=== PATIENT | male | born 1940 | race Caucasian/White ===

== ENCOUNTER 2017-11-03 12:40 | Inpatient (IN) | payer MEDICARE, OTHER ==
[~2017-11-03] VITALS: Ht 170.2 cm; Wt 69.0 kg
[2017-11-03] MEDS ORDERED: SODIUM CHLORIDE 0.9% 1,000 ML IV ONE (13:18)
[2017-11-03] MEDS ORDERED: SODIUM CHLORIDE 0.9% 1,000ML IVBOLUS ONE (13:30)
[2017-11-03] MEDS ORDERED: SODIUM CHLORIDE FLUSH 10ML SYR IVF ONE (13:30)
[2017-11-03 13:35] LABS: BASOPHILS # (AUTO) 0.03 x10^3/uL (0-0.1); BASOPHILS % (AUTO) 0 % (0-1); EOSINOPHILS # (AUTO) 0.05 x10^3/uL (0-0.4); EOSINOPHILS % (AUTO) 1 % (1-7); LYMPHOCYTES # (AUTO) 1.69 x10^3/uL (1-3.4); LYMPHOCYTES % (AUTO) 20 % (22-44); MD NO; MEAN CORPUSCULAR HEMOGLOBIN 32.8 pg (27.5-34.5); MEAN CORPUSCULAR HGB CONC 33.2 g/dL (33.2-36.2); MEAN CORPUSCULAR VOLUME 98.8 fL (81-97); MEAN PLATELET VOLUME 7.8 fL (7.4-10.4); MONOCYTES # (AUTO) 0.43 x10^3/uL (0.2-0.8); MONOCYTES % (AUTO) 5 % (2-9); NEUTROPHILS # (AUTO) 6.49 x10^3/uL (1.8-6.8); NEUTROPHILS % (AUTO) 75 % (42-75); PLATELET COUNT 202 x10^3/uL (130-400); RED BLOOD COUNT 3.57 x10^6/uL (4.38-5.82); RED CELL DISTRIBUTION WIDTH 13.5 % (9.4-14.8)
[2017-11-03 13:45] LABS: ALANINE AMINOTRANSFERASE 71 U/L (12-78); ALBUMIN 3.5 g/dL (3.4-5.0); ANION GAP 6 mmol/L (5-15); CALCIUM 8.9 mg/dL (8.5-10.1); CHLORIDE 103 mmol/L (98-107); CREATININE 1.05 mg/dL (0.7-1.3)
[2017-11-03 13:46] LABS: INTERNATIONAL NORMALIZED RATIO 1.01 (0.93-1.1); PROTHROMBIN TIME 10.4 Seconds (9.6-11.5)
[2017-11-03 13:48] LABS: ALKALINE PHOSPHATASE 139 U/L (45-117); BILIRUBIN,TOTAL 0.4 mg/dL (0.2-1.0); TOTAL PROTEIN 7.3 g/dL (6.4-8.2)
[2017-11-03] MEDS ORDERED: SODIUM CHLORIDE FLUSH 10ML SYR IVF PRN (16:00)
[2017-11-03 16:20] LABS: MICROSCOPIC NOT IND
[2017-11-03 16:23] LABS: CULTURE INDICATED? NO
[2017-11-03] MEDS ORDERED: ZOLPIDEM 5MG TABLET PO PRN (17:30)
[2017-11-03] MEDS ORDERED: GUAIFENESIN/DM 200-20MG, 10ML UDC PO PRN (17:30)
[2017-11-03] MEDS ORDERED: ONDANSETRON 2MG/ML, 2ML IVPush PRN (17:30)
[2017-11-03] MEDS ORDERED: hydrALAzine 20 MG/ML, 1ML IVPush PRN (17:30)
[2017-11-03] MEDS ORDERED: ENOXAPARIN 40 MG/0.4 ML ONE (18:10)
[2017-11-03] MEDS: ENOXAPARIN 40 MG/0.4 ML SQ SCH (18:12)
[2017-11-03 18:20] LABS: FOLATE LEVEL 13.8 ng/mL (3.1-17.5)
[2017-11-03 18:48] VITALS: BP 156/76
[2017-11-03] MEDS: SODIUM CHLORIDE 0.9% 1,000 ML IV SCH (22:22)
[2017-11-03 22:38] LABS: AMPHETAMINE SCREEN, URINE Negative (Negative); BARBITURATE SCREEN, URINE Negative (Negative); BENZODIAZEPINE SCREEN, URINE Negative (Negative); CANNABINOID SCREEN, URINE Negative (Negative); COCAINE SCREEN, URINE Negative (Negative); METHADONE SCREEN, URINE Negative (Negative); OPIATE SCREEN, URINE Negative (Negative)
[2017-11-04 02:44] VITALS: BP 115/62
[2017-11-04 05:15] LABS: BASOPHILS # (AUTO) 0.04 x10^3/uL (0-0.1); BASOPHILS % (AUTO) 1 % (0-1); EOSINOPHILS # (AUTO) 0.17 x10^3/uL (0-0.4); EOSINOPHILS % (AUTO) 2 % (1-7); LYMPHOCYTES # (AUTO) 2.32 x10^3/uL (1-3.4); LYMPHOCYTES % (AUTO) 30 % (22-44); MD NO; MEAN CORPUSCULAR HGB CONC 33.7 g/dL (33.2-36.2); MEAN CORPUSCULAR VOLUME 98.1 fL (81-97); MEAN PLATELET VOLUME 8.3 fL (7.4-10.4); MONOCYTES # (AUTO) 0.65 x10^3/uL (0.2-0.8); MONOCYTES % (AUTO) 8 % (2-9); NEUTROPHILS # (AUTO) 4.52 x10^3/uL (1.8-6.8); NEUTROPHILS % (AUTO) 59 % (42-75); PLATELET COUNT 209 x10^3/uL (130-400); RED BLOOD COUNT 3.26 x10^6/uL (4.38-5.82); RED CELL DISTRIBUTION WIDTH 13.6 % (9.4-14.8)
[2017-11-04 05:27] LABS: ANION GAP 5 mmol/L (5-15); CALCIUM 8.6 mg/dL (8.5-10.1); CHLORIDE 108 mmol/L (98-107)
[2017-11-04 05:29] LABS: CREATININE 1.15 mg/dL (0.7-1.3)
[2017-11-04 07:35] VITALS: BP 129/73
[2017-11-04] MEDS: SODIUM CHLORIDE 0.9% 1,000 ML IV SCH (11:26)
[2017-11-04 13:00] VITALS: BP 147/80
[2017-11-04] MEDS: ENOXAPARIN 40 MG/0.4 ML SQ SCH (17:30)
[2017-11-04 19:53] VITALS: BP 150/74
[2017-11-05 00:38] VITALS: BP 143/78
[2017-11-05] MEDS: ACETAMINOPHEN 325 MG TABLET PO PRN (02:19)
[2017-11-05 06:00] VITALS: BP 136/75
[2017-11-05 13:45] VITALS: BP 156/81
[2017-11-05] MEDS: metFORMIN 500 MG TABLET PO SCH (17:10)
[2017-11-05 19:04] VITALS: BP 175/131
[2017-11-05] MEDS: VENLAFAXINE 75 MG CAP ER PO SCH (20:51)
[2017-11-05] MEDS: DONEPEZIL 5 MG TABLET PO SCH (20:51)
[2017-11-05] MEDS: ATORVASTATIN 20 MG TABLET PO SCH (20:51)
[2017-11-05] MEDS: TRAZODONE 50MG TABLET PO SCH (20:51)
[2017-11-05 20:52] VITALS: BP 126/85
[2017-11-05] MEDS: ENOXAPARIN 40 MG/0.4 ML SQ SCH (20:56)
[2017-11-06 00:05] VITALS: BP 136/70
[2017-11-06 07:09] VITALS: BP 131/75
[2017-11-06] MEDS: LOSARTAN 50MG TABLET PO SCH (08:15)
[2017-11-06] MEDS: metFORMIN 500 MG TABLET PO SCH ×2 (08:15→17:00)
[2017-11-06 13:35] VITALS: BP 117/68
[2017-11-06] MEDS: ZIPRASIDONE 20 MG INJ IM PRN (13:55)
[2017-11-06] MEDS: TAMSULOSIN 0.4 MG CAP.ER.24H PO SCH (15:30)
[2017-11-06 19:39] VITALS: BP 103/62
[2017-11-06] MEDS: ENOXAPARIN 40 MG/0.4 ML SQ SCH (21:25)
[2017-11-06] MEDS: VENLAFAXINE 75 MG CAP ER PO SCH (21:25)
[2017-11-06] MEDS: ATORVASTATIN 20 MG TABLET PO SCH (21:25)
[2017-11-06] MEDS: TRAZODONE 50MG TABLET PO SCH (21:25)
[2017-11-06] MEDS: DONEPEZIL 5 MG TABLET PO SCH (21:25)
[2017-11-07 08:03] VITALS: BP 119/74
[2017-11-07] MEDS: TAMSULOSIN 0.4 MG CAP.ER.24H PO SCH (10:50)
[2017-11-07] MEDS: metFORMIN 500 MG TABLET PO SCH ×2 (10:50→17:41)
[2017-11-07] MEDS: LOSARTAN 50MG TABLET PO SCH (10:50)
[2017-11-07 14:01] VITALS: BP 145/74
[2017-11-07 19:24] VITALS: BP 144/73
[2017-11-07] MEDS: VENLAFAXINE 75 MG CAP ER PO SCH (20:32)
[2017-11-07] MEDS: ATORVASTATIN 20 MG TABLET PO SCH (20:32)
[2017-11-07] MEDS: TRAZODONE 50MG TABLET PO SCH (20:32)
[2017-11-07] MEDS: ENOXAPARIN 40 MG/0.4 ML SQ SCH (20:33)
[2017-11-07] MEDS: DONEPEZIL 5 MG TABLET PO SCH (20:55)
[2017-11-08 09:07] VITALS: BP 124/74
[2017-11-08] MEDS: TAMSULOSIN 0.4 MG CAP.ER.24H PO SCH (09:15)
[2017-11-08] MEDS: metFORMIN 500 MG TABLET PO SCH ×2 (09:15→16:04)
[2017-11-08] MEDS: LOSARTAN 50MG TABLET PO SCH (09:16)
[2017-11-08 19:13] VITALS: BP 138/76
[2017-11-08] MEDS: ATORVASTATIN 20 MG TABLET PO SCH (20:28)
[2017-11-08] MEDS: ENOXAPARIN 40 MG/0.4 ML SQ SCH (20:28)
[2017-11-08] MEDS: DONEPEZIL 5 MG TABLET PO SCH (20:28)
[2017-11-08] MEDS: TRAZODONE 50MG TABLET PO SCH (20:28)
[2017-11-08] MEDS: VENLAFAXINE 75 MG CAP ER PO SCH (20:28)
[2017-11-09 00:50] VITALS: BP 145/78
[2017-11-09 05:55] LABS: CHLORIDE 107 mmol/L (98-107)
[2017-11-09 05:58] LABS: BASOPHILS # (AUTO) 0.03 x10^3/uL (0-0.1); BASOPHILS % (AUTO) 0 % (0-1); EOSINOPHILS # (AUTO) 0.12 x10^3/uL (0-0.4); EOSINOPHILS % (AUTO) 2 % (1-7); LYMPHOCYTES # (AUTO) 1.85 x10^3/uL (1-3.4); LYMPHOCYTES % (AUTO) 26 % (22-44); MD NO; MEAN CORPUSCULAR HEMOGLOBIN 32.7 pg (27.5-34.5); MEAN CORPUSCULAR HGB CONC 33.9 g/dL (33.2-36.2); MEAN CORPUSCULAR VOLUME 96.6 fL (81-97); MEAN PLATELET VOLUME 8.4 fL (7.4-10.4); MONOCYTES # (AUTO) 0.54 x10^3/uL (0.2-0.8); MONOCYTES % (AUTO) 8 % (2-9); NEUTROPHILS # (AUTO) 4.62 x10^3/uL (1.8-6.8); NEUTROPHILS % (AUTO) 65 % (42-75); PLATELET COUNT 200 x10^3/uL (130-400); RED BLOOD COUNT 3.47 x10^6/uL (4.38-5.82); RED CELL DISTRIBUTION WIDTH 13.8 % (9.4-14.8)
[2017-11-09 06:01] LABS: ANION GAP 8 mmol/L (5-15); CALCIUM 9.2 mg/dL (8.5-10.1); CREATININE 1.16 mg/dL (0.7-1.3)
[2017-11-09] MEDS: metFORMIN 500 MG TABLET PO SCH ×2 (08:00→17:18)
[2017-11-09] MEDS: TAMSULOSIN 0.4 MG CAP.ER.24H PO SCH (09:00)
[2017-11-09] MEDS: LOSARTAN 50MG TABLET PO SCH (09:00)
[2017-11-09 13:53] VITALS: BP 168/87
[2017-11-09 19:28] VITALS: BP 145/85
[2017-11-09] MEDS: ATORVASTATIN 20 MG TABLET PO SCH (20:07)
[2017-11-09] MEDS: TRAZODONE 50MG TABLET PO SCH (20:07)
[2017-11-09] MEDS: DONEPEZIL 5 MG TABLET PO SCH (20:07)
[2017-11-09] MEDS: VENLAFAXINE 75 MG CAP ER PO SCH (20:07)
[2017-11-09] MEDS: ENOXAPARIN 40 MG/0.4 ML SQ SCH (20:08)
[2017-11-10 01:39] VITALS: BP 154/79
[2017-11-10 09:02] VITALS: BP 145/84
[2017-11-10] MEDS: LOSARTAN 50MG TABLET PO SCH (09:06)
[2017-11-10] MEDS: TAMSULOSIN 0.4 MG CAP.ER.24H PO SCH (09:06)
[2017-11-10] MEDS: metFORMIN 500 MG TABLET PO SCH ×2 (09:06→17:59)
[2017-11-10 14:06] VITALS: BP 156/82
[2017-11-10 18:35] VITALS: BP 158/70
[2017-11-10] MEDS: TRAZODONE 50MG TABLET PO SCH (20:55)
[2017-11-10] MEDS: VENLAFAXINE 75 MG CAP ER PO SCH (20:55)
[2017-11-10] MEDS: DONEPEZIL 5 MG TABLET PO SCH (20:55)
[2017-11-10] MEDS: ATORVASTATIN 20 MG TABLET PO SCH (20:55)
[2017-11-10] MEDS: ENOXAPARIN 40 MG/0.4 ML SQ SCH (20:56)
[2017-11-11 01:10] VITALS: BP 150/75
[2017-11-11] MEDS ORDERED: ZIPRASIDONE 20 MG INJ IM ONE (05:30)
[2017-11-11] MEDS: metFORMIN 500 MG TABLET PO SCH ×2 (09:01→17:29)
[2017-11-11] MEDS: LOSARTAN 50MG TABLET PO SCH (09:01)
[2017-11-11] MEDS: TAMSULOSIN 0.4 MG CAP.ER.24H PO SCH (09:01)
[2017-11-11 13:10] VITALS: BP 131/73
[2017-11-11 19:38] VITALS: BP 159/81
[2017-11-11] MEDS: ATORVASTATIN 20 MG TABLET PO SCH (20:21)
[2017-11-11] MEDS: VENLAFAXINE 75 MG CAP ER PO SCH (20:21)
[2017-11-11] MEDS: TRAZODONE 50MG TABLET PO SCH (20:21)
[2017-11-11] MEDS: DONEPEZIL 5 MG TABLET PO SCH (20:22)
[2017-11-11] MEDS: ENOXAPARIN 40 MG/0.4 ML SQ SCH (20:24)
[2017-11-12] MEDS: metFORMIN 500 MG TABLET PO SCH ×2 (08:41→17:00)
[2017-11-12] MEDS: LOSARTAN 50MG TABLET PO SCH (08:41)
[2017-11-12] MEDS: TAMSULOSIN 0.4 MG CAP.ER.24H PO SCH (08:41)
[2017-11-12 08:50] VITALS: BP 159/81
[2017-11-12 13:05] VITALS: BP 146/80
[2017-11-12] MEDS: ZIPRASIDONE 20 MG INJ IM PRN (15:11)
[2017-11-12 19:28] VITALS: BP 147/77
[2017-11-12] MEDS: ENOXAPARIN 40 MG/0.4 ML SQ SCH (19:59)
[2017-11-12] MEDS: DONEPEZIL 5 MG TABLET PO SCH (19:59)
[2017-11-12] MEDS: ATORVASTATIN 20 MG TABLET PO SCH (19:59)
[2017-11-12] MEDS: VENLAFAXINE 75 MG CAP ER PO SCH (19:59)
[2017-11-12] MEDS: TRAZODONE 50MG TABLET PO SCH (19:59)
[2017-11-13 06:41] VITALS: BP 129/67
[2017-11-13] MEDS: LOSARTAN 50MG TABLET PO SCH (09:38)
[2017-11-13] MEDS: metFORMIN 500 MG TABLET PO SCH ×2 (09:38→17:00)
[2017-11-13] MEDS: TAMSULOSIN 0.4 MG CAP.ER.24H PO SCH (09:38)
[2017-11-13] MEDS ORDERED: HALOPERIDOL 0.5 MG TABLET ONE (11:29)
[2017-11-13] MEDS: HALOPERIDOL 1 MG TABLET PO PRN (11:31)
[2017-11-13] MEDS: DOCUSATE 100 MG CAPSULE PO PRN (11:31)
[2017-11-13 13:50] VITALS: BP 145/78
[2017-11-13 19:57] VITALS: BP 142/72
[2017-11-13] MEDS ORDERED: TRAZODONE 100MG TABLET ONE (20:12)
[2017-11-13] MEDS: DONEPEZIL 5 MG TABLET PO SCH (20:21)
[2017-11-13] MEDS: ENOXAPARIN 40 MG/0.4 ML SQ SCH (20:21)
[2017-11-13] MEDS: VENLAFAXINE 75 MG CAP ER PO SCH (20:21)
[2017-11-13] MEDS: ATORVASTATIN 20 MG TABLET PO SCH (20:21)
[2017-11-13] MEDS: TRAZODONE 50MG TABLET PO SCH (20:21)
[2017-11-14 02:50] VITALS: BP 132/81
[2017-11-14 08:05] VITALS: BP 132/77
[2017-11-14] MEDS: TAMSULOSIN 0.4 MG CAP.ER.24H PO SCH (10:30)
[2017-11-14] MEDS: metFORMIN 500 MG TABLET PO SCH ×2 (10:30→17:00)
[2017-11-14] MEDS: LOSARTAN 50MG TABLET PO SCH (10:30)
[2017-11-14 15:13] VITALS: BP 115/67
[2017-11-14 18:50] VITALS: BP 157/76
[2017-11-14 19:46] VITALS: BP 150/63
[2017-11-14] MEDS: ENOXAPARIN 40 MG/0.4 ML SQ SCH (21:00)
[2017-11-14] MEDS: ATORVASTATIN 20 MG TABLET PO SCH (22:32)
[2017-11-14] MEDS: TRAZODONE 50MG TABLET PO SCH (22:32)
[2017-11-14] MEDS: DONEPEZIL 5 MG TABLET PO SCH (22:32)
[2017-11-14] MEDS: VENLAFAXINE 75 MG CAP ER PO SCH (22:32)
[2017-11-15 00:34] VITALS: BP 132/63
[2017-11-15 07:04] VITALS: BP 129/67
[2017-11-15] MEDS: metFORMIN 500 MG TABLET PO SCH ×2 (09:02→16:37)
[2017-11-15] MEDS: TAMSULOSIN 0.4 MG CAP.ER.24H PO SCH (09:02)
[2017-11-15] MEDS: LOSARTAN 50MG TABLET PO SCH (09:02)
[2017-11-15 13:14] VITALS: BP 150/92
[2017-11-15] MEDS: DONEPEZIL 5 MG TABLET PO SCH (19:52)
[2017-11-15] MEDS: TRAZODONE 50MG TABLET PO SCH (19:52)
[2017-11-15] MEDS: VENLAFAXINE 75 MG CAP ER PO SCH (19:52)
[2017-11-15] MEDS: ENOXAPARIN 40 MG/0.4 ML SQ SCH (19:53)
[2017-11-15] MEDS: ATORVASTATIN 20 MG TABLET PO SCH (19:53)
[2017-11-15 19:56] VITALS: BP 130/72
[2017-11-16] MEDS: HALOPERIDOL 1 MG TABLET PO PRN (04:09)
[2017-11-16] MEDS ORDERED: ZIPRASIDONE 20 MG INJ IM ONE (05:00)
[2017-11-16 09:50] VITALS: BP 134/69
[2017-11-16] MEDS: metFORMIN 500 MG TABLET PO SCH ×2 (10:44→17:00)
[2017-11-16] MEDS: TAMSULOSIN 0.4 MG CAP.ER.24H PO SCH (10:45)
[2017-11-16] MEDS: LOSARTAN 50MG TABLET PO SCH (10:45)
[2017-11-16 13:20] VITALS: BP 112/64
[2017-11-16 19:37] VITALS: BP 122/72
[2017-11-16] MEDS: ENOXAPARIN 40 MG/0.4 ML SQ SCH (19:37)
[2017-11-16] MEDS: TRAZODONE 50MG TABLET PO SCH (19:37)
[2017-11-16] MEDS: DONEPEZIL 5 MG TABLET PO SCH (19:37)
[2017-11-16] MEDS: ATORVASTATIN 20 MG TABLET PO SCH (19:37)
[2017-11-16] MEDS: VENLAFAXINE 75 MG CAP ER PO SCH (19:37)
[2017-11-17 07:57] VITALS: BP 142/82
[2017-11-17] MEDS: metFORMIN 500 MG TABLET PO SCH ×2 (09:23→15:57)
[2017-11-17] MEDS: TAMSULOSIN 0.4 MG CAP.ER.24H PO SCH (09:23)
[2017-11-17] MEDS: LOSARTAN 50MG TABLET PO SCH (09:23)
[2017-11-17] MEDS: HALOPERIDOL 1 MG TABLET PO PRN (11:25)
[2017-11-17 13:59] VITALS: BP 153/70
[2017-11-17] MEDS: VENLAFAXINE 75 MG CAP ER PO SCH (15:30)
[2017-11-17] MEDS: DIVALPROEX 125 MG CAP.SPRINK PO SCH (15:57)
[2017-11-17 20:12] VITALS: BP 147/79
[2017-11-17] MEDS: ATORVASTATIN 20 MG TABLET PO SCH (20:15)
[2017-11-17] MEDS: ENOXAPARIN 40 MG/0.4 ML SQ SCH (20:15)
[2017-11-17] MEDS: TRAZODONE 50MG TABLET PO SCH (20:15)
[2017-11-18 01:36] VITALS: BP 128/80
[2017-11-18 07:29] VITALS: BP 156/73
[2017-11-18] MEDS: TAMSULOSIN 0.4 MG CAP.ER.24H PO SCH (08:52)
[2017-11-18] MEDS: metFORMIN 500 MG TABLET PO SCH ×2 (08:52→17:43)
[2017-11-18] MEDS: LOSARTAN 50MG TABLET PO SCH (08:52)
[2017-11-18] MEDS: VENLAFAXINE 75 MG CAP ER PO SCH (08:53)
[2017-11-18 12:18] VITALS: BP 148/75
[2017-11-18] MEDS: DIVALPROEX 125 MG CAP.SPRINK PO SCH (17:43)
[2017-11-18 19:06] VITALS: BP 137/66
[2017-11-18] MEDS: ENOXAPARIN 40 MG/0.4 ML SQ SCH (20:03)
[2017-11-18] MEDS: ATORVASTATIN 20 MG TABLET PO SCH (20:03)
[2017-11-18] MEDS: TRAZODONE 50MG TABLET PO SCH (20:03)
[2017-11-19 01:45] VITALS: BP 145/73
[2017-11-19 07:15] VITALS: BP 138/80
[2017-11-19] MEDS: metFORMIN 500 MG TABLET PO SCH ×2 (09:33→17:49)
[2017-11-19] MEDS: LOSARTAN 50MG TABLET PO SCH (09:33)
[2017-11-19] MEDS: TAMSULOSIN 0.4 MG CAP.ER.24H PO SCH (09:34)
[2017-11-19] MEDS: HALOPERIDOL 1 MG TABLET PO PRN (09:34)
[2017-11-19] MEDS: VENLAFAXINE 75 MG CAP ER PO SCH (09:34)
[2017-11-19 13:52] VITALS: BP 129/70
[2017-11-19] MEDS: DIVALPROEX 125 MG CAP.SPRINK PO SCH (17:48)
[2017-11-19 19:21] VITALS: BP 125/60
[2017-11-19] MEDS: ENOXAPARIN 40 MG/0.4 ML SQ SCH (21:00)
[2017-11-19] MEDS: TRAZODONE 50MG TABLET PO SCH (21:05)
[2017-11-19] MEDS: ATORVASTATIN 20 MG TABLET PO SCH (21:06)
[2017-11-20 01:35] VITALS: BP 130/70
[2017-11-20 08:00] VITALS: BP 124/65
[2017-11-20] MEDS: metFORMIN 500 MG TABLET PO SCH ×2 (08:17→18:42)
[2017-11-20] MEDS: TAMSULOSIN 0.4 MG CAP.ER.24H PO SCH (08:17)
[2017-11-20] MEDS: LOSARTAN 50MG TABLET PO SCH (08:17)
[2017-11-20] MEDS: VENLAFAXINE 75 MG CAP ER PO SCH (08:17)
[2017-11-20 14:30] VITALS: BP 134/65
[2017-11-20] MEDS: HALOPERIDOL 1 MG TABLET PO PRN (16:55)
[2017-11-20] MEDS: DIVALPROEX 125 MG CAP.SPRINK PO SCH (18:42)
[2017-11-20] MEDS: TRAZODONE 50MG TABLET PO SCH (19:42)
[2017-11-20] MEDS: ENOXAPARIN 40 MG/0.4 ML SQ SCH (19:43)
[2017-11-20] MEDS: ATORVASTATIN 20 MG TABLET PO SCH (19:43)
[2017-11-20 20:09] VITALS: BP 119/64
[2017-11-21 02:17] VITALS: BP 122/65
[2017-11-21] MEDS: metFORMIN 500 MG TABLET PO SCH ×2 (08:20→18:42)
[2017-11-21] MEDS: LOSARTAN 50MG TABLET PO SCH (08:20)
[2017-11-21] MEDS: VENLAFAXINE 75 MG CAP ER PO SCH (08:20)
[2017-11-21] MEDS: TAMSULOSIN 0.4 MG CAP.ER.24H PO SCH (08:20)
[2017-11-21 08:30] VITALS: BP 108/59
[2017-11-21] MEDS: HALOPERIDOL 1 MG TABLET PO PRN (11:18)
[2017-11-21 14:30] VITALS: BP 128/68
[2017-11-21] MEDS: DIVALPROEX 125 MG CAP.SPRINK PO SCH (18:42)
[2017-11-21] MEDS: ENOXAPARIN 40 MG/0.4 ML SQ SCH (19:39)
[2017-11-21] MEDS: ATORVASTATIN 20 MG TABLET PO SCH (19:43)
[2017-11-21] MEDS: RISPERIDONE 0.5 MG TABLET PO SCH (19:43)
[2017-11-21] MEDS: TRAZODONE 50MG TABLET PO SCH (19:43)
[2017-11-21 20:19] VITALS: BP 122/59
[2017-11-22 00:35] VITALS: BP 122/59
[2017-11-22 07:57] VITALS: BP 118/73
[2017-11-22] MEDS: LOSARTAN 50MG TABLET PO SCH (11:40)
[2017-11-22] MEDS: RISPERIDONE 0.5 MG TABLET PO SCH ×2 (11:40→20:48)
[2017-11-22] MEDS: VENLAFAXINE 75 MG CAP ER PO SCH (11:41)
[2017-11-22] MEDS: metFORMIN 500 MG TABLET PO SCH ×2 (11:41→17:29)
[2017-11-22] MEDS: TAMSULOSIN 0.4 MG CAP.ER.24H PO SCH (11:41)
[2017-11-22 16:10] VITALS: BP 119/69
[2017-11-22] MEDS: DIVALPROEX 125 MG CAP.SPRINK PO SCH (17:29)
[2017-11-22 18:24] VITALS: BP 113/68
[2017-11-22] MEDS: ENOXAPARIN 40 MG/0.4 ML SQ SCH (20:42)
[2017-11-22] MEDS: ATORVASTATIN 20 MG TABLET PO SCH (20:48)
[2017-11-22] MEDS: TRAZODONE 50MG TABLET PO SCH (20:48)
[2017-11-23 00:39] VITALS: BP 137/77
[2017-11-23 07:59] VITALS: BP 120/78
[2017-11-23] MEDS: VENLAFAXINE 75 MG CAP ER PO SCH ×2 (09:00→12:16)
[2017-11-23] MEDS: metFORMIN 500 MG TABLET PO SCH ×2 (10:37→17:04)
[2017-11-23] MEDS: TAMSULOSIN 0.4 MG CAP.ER.24H PO SCH (10:38)
[2017-11-23] MEDS: RISPERIDONE 0.5 MG TABLET PO SCH ×2 (10:38→19:58)
[2017-11-23] MEDS: LOSARTAN 50MG TABLET PO SCH (10:38)
[2017-11-23 13:11] VITALS: BP 118/71
[2017-11-23] MEDS: DIVALPROEX 125 MG CAP.SPRINK PO SCH (17:04)
[2017-11-23 19:01] VITALS: BP 120/72
[2017-11-23] MEDS: ENOXAPARIN 40 MG/0.4 ML SQ SCH (19:24)
[2017-11-23] MEDS: ATORVASTATIN 20 MG TABLET PO SCH (19:58)
[2017-11-23] MEDS: TRAZODONE 50MG TABLET PO SCH (19:58)
[2017-11-24 08:00] VITALS: BP 113/72
[2017-11-24] MEDS: metFORMIN 500 MG TABLET PO SCH ×2 (09:45→16:54)
[2017-11-24] MEDS: TAMSULOSIN 0.4 MG CAP.ER.24H PO SCH (09:45)
[2017-11-24] MEDS: RISPERIDONE 0.5 MG TABLET PO SCH ×2 (09:45→19:22)
[2017-11-24] MEDS: VENLAFAXINE 75 MG CAP ER PO SCH (09:46)
[2017-11-24] MEDS: LOSARTAN 50MG TABLET PO SCH (09:46)
[2017-11-24 13:32] VITALS: BP 120/72
[2017-11-24] MEDS: DIVALPROEX 125 MG CAP.SPRINK PO SCH (16:54)
[2017-11-24] MEDS: ENOXAPARIN 40 MG/0.4 ML SQ SCH (19:15)
[2017-11-24] MEDS: HALOPERIDOL 1 MG TABLET PO PRN (19:22)
[2017-11-24] MEDS: ATORVASTATIN 20 MG TABLET PO SCH (19:22)
[2017-11-24] MEDS: TRAZODONE 50MG TABLET PO SCH (19:22)
[2017-11-24 20:48] VITALS: BP 112/52
[2017-11-25 02:20] VITALS: BP 109/68
[2017-11-25 07:30] VITALS: BP 125/58
[2017-11-25] MEDS: VENLAFAXINE 75 MG CAP ER PO SCH (09:00)
[2017-11-25] MEDS: LOSARTAN 50MG TABLET PO SCH (09:51)
[2017-11-25] MEDS: TAMSULOSIN 0.4 MG CAP.ER.24H PO SCH (09:51)
[2017-11-25] MEDS: metFORMIN 500 MG TABLET PO SCH ×2 (09:51→17:27)
[2017-11-25] MEDS: RISPERIDONE 0.5 MG TABLET PO SCH ×2 (09:51→20:13)
[2017-11-25 12:30] VITALS: BP 92/52
[2017-11-25] MEDS: DIVALPROEX 125 MG CAP.SPRINK PO SCH (17:27)
[2017-11-25] MEDS: ENOXAPARIN 40 MG/0.4 ML SQ SCH (19:10)
[2017-11-25 20:10] VITALS: BP 123/72
[2017-11-25] MEDS: ATORVASTATIN 20 MG TABLET PO SCH (20:13)
[2017-11-25] MEDS: TRAZODONE 50MG TABLET PO SCH (20:13)
[2017-11-25 20:24] VITALS: BP 123/72
[2017-11-26 01:48] VITALS: BP 118/62
[2017-11-26 07:01] VITALS: BP 107/54
[2017-11-26] MEDS: RISPERIDONE 0.5 MG TABLET PO SCH ×2 (08:43→19:29)
[2017-11-26] MEDS: metFORMIN 500 MG TABLET PO SCH ×2 (08:43→17:59)
[2017-11-26] MEDS: VENLAFAXINE 75 MG CAP ER PO SCH (08:43)
[2017-11-26] MEDS: TAMSULOSIN 0.4 MG CAP.ER.24H PO SCH (08:44)
[2017-11-26] MEDS: LOSARTAN 50MG TABLET PO SCH (08:44)
[2017-11-26 12:27] VITALS: BP 110/54
[2017-11-26] MEDS: DIVALPROEX 125 MG CAP.SPRINK PO SCH (17:59)
[2017-11-26 18:30] VITALS: BP 162/70
[2017-11-26] MEDS: ENOXAPARIN 40 MG/0.4 ML SQ SCH (19:22)
[2017-11-26] MEDS: ATORVASTATIN 20 MG TABLET PO SCH (19:29)
[2017-11-26] MEDS: TRAZODONE 50MG TABLET PO SCH (19:29)
[2017-11-27 03:30] VITALS: BP 128/70
[2017-11-27] MEDS: TAMSULOSIN 0.4 MG CAP.ER.24H PO SCH (10:34)
[2017-11-27] MEDS: LOSARTAN 50MG TABLET PO SCH (10:34)
[2017-11-27] MEDS: RISPERIDONE 0.5 MG TABLET PO SCH ×2 (10:34→21:10)
[2017-11-27] MEDS: VENLAFAXINE 75 MG CAP ER PO SCH (10:34)
[2017-11-27] MEDS: metFORMIN 500 MG TABLET PO SCH ×2 (10:34→16:18)
[2017-11-27 12:55] VITALS: BP 107/65
[2017-11-27 14:30] VITALS: BP 111/58
[2017-11-27] MEDS: DIVALPROEX 125 MG CAP.SPRINK PO SCH (16:18)
[2017-11-27 18:35] VITALS: BP 125/69
[2017-11-27] MEDS: ATORVASTATIN 20 MG TABLET PO SCH (21:10)
[2017-11-27] MEDS: TRAZODONE 50MG TABLET PO SCH (21:10)
[2017-11-27] MEDS: ENOXAPARIN 40 MG/0.4 ML SQ SCH (21:11)
[2017-11-28 00:30] VITALS: BP_SYST 88; BP_SYST 93; BP_DIAS 49; BP_DIAS 55
[2017-11-28 07:18] VITALS: BP 120/60
[2017-11-28] MEDS: LOSARTAN 50MG TABLET PO SCH (09:00)
[2017-11-28] MEDS: TAMSULOSIN 0.4 MG CAP.ER.24H PO SCH (09:00)
[2017-11-28] MEDS: RISPERIDONE 0.5 MG TABLET PO SCH ×2 (09:00→21:06)
[2017-11-28] MEDS: VENLAFAXINE 75 MG CAP ER PO SCH (09:00)
[2017-11-28] MEDS: metFORMIN 500 MG TABLET PO SCH ×2 (09:00→16:36)
[2017-11-28 13:40] VITALS: BP 123/68
[2017-11-28] MEDS: DIVALPROEX 125 MG CAP.SPRINK PO SCH (16:36)
[2017-11-28 19:45] VITALS: BP 171/74
[2017-11-28] MEDS: ENOXAPARIN 40 MG/0.4 ML SQ SCH (21:06)
[2017-11-28] MEDS: TRAZODONE 50MG TABLET PO SCH (21:06)
[2017-11-28] MEDS: ATORVASTATIN 20 MG TABLET PO SCH (21:06)
[2017-11-29 02:43] VITALS: BP 147/64
[2017-11-29 08:35] VITALS: BP 133/69
[2017-11-29] MEDS: metFORMIN 500 MG TABLET PO SCH ×2 (10:05→16:46)
[2017-11-29] MEDS: VENLAFAXINE 75 MG CAP ER PO SCH (10:05)
[2017-11-29] MEDS: TAMSULOSIN 0.4 MG CAP.ER.24H PO SCH (10:05)
[2017-11-29] MEDS: LOSARTAN 50MG TABLET PO SCH (10:05)
[2017-11-29] MEDS: RISPERIDONE 0.5 MG TABLET PO SCH ×2 (10:05→21:52)
[2017-11-29 14:49] VITALS: BP 163/88
[2017-11-29] MEDS: DIVALPROEX 125 MG CAP.SPRINK PO SCH (16:46)
[2017-11-29 19:42] VITALS: BP 149/82
[2017-11-29] MEDS: ENOXAPARIN 40 MG/0.4 ML SQ SCH (21:52)
[2017-11-29] MEDS: ATORVASTATIN 20 MG TABLET PO SCH (21:52)
[2017-11-29] MEDS: TRAZODONE 50MG TABLET PO SCH (21:52)
[2017-11-30 04:51] VITALS: BP 131/78
[2017-11-30 05:32] LABS: CREATININE 1.09 mg/dL (0.7-1.3)
[2017-11-30 08:30] VITALS: BP 159/86
[2017-11-30] MEDS: LOSARTAN 50MG TABLET PO SCH (10:39)
[2017-11-30] MEDS: RISPERIDONE 0.5 MG TABLET PO SCH ×2 (10:39→20:50)
[2017-11-30] MEDS: TAMSULOSIN 0.4 MG CAP.ER.24H PO SCH (10:39)
[2017-11-30] MEDS: metFORMIN 500 MG TABLET PO SCH ×2 (10:40→17:02)
[2017-11-30] MEDS: VENLAFAXINE 75 MG CAP ER PO SCH (10:40)
[2017-11-30 14:06] VITALS: BP 129/77
[2017-11-30] MEDS: DIVALPROEX 125 MG CAP.SPRINK PO SCH (17:02)
[2017-11-30] MEDS: TRAZODONE 50MG TABLET PO SCH (20:49)
[2017-11-30] MEDS: ATORVASTATIN 20 MG TABLET PO SCH (20:49)
[2017-11-30] MEDS: ENOXAPARIN 40 MG/0.4 ML SQ SCH (20:50)
[2017-11-30 21:40] VITALS: BP 118/52
[2017-12-01 01:52] VITALS: BP 111/56
[2017-12-01 07:30] VITALS: BP 139/68
[2017-12-01] MEDS: TAMSULOSIN 0.4 MG CAP.ER.24H PO SCH (10:48)
[2017-12-01] MEDS: VENLAFAXINE 75 MG CAP ER PO SCH (10:49)
[2017-12-01] MEDS: LOSARTAN 50MG TABLET PO SCH (10:49)
[2017-12-01] MEDS: metFORMIN 500 MG TABLET PO SCH ×2 (10:49→18:20)
[2017-12-01] MEDS: RISPERIDONE 0.5 MG TABLET PO SCH ×2 (10:49→19:56)
[2017-12-01 13:26] VITALS: BP 92/56
[2017-12-01] MEDS: DIVALPROEX 125 MG CAP.SPRINK PO SCH (18:20)
[2017-12-01 19:40] VITALS: BP 130/78
[2017-12-01] MEDS: TRAZODONE 50MG TABLET PO SCH (19:56)
[2017-12-01] MEDS: ATORVASTATIN 20 MG TABLET PO SCH (19:56)
[2017-12-01] MEDS: ENOXAPARIN 40 MG/0.4 ML SQ SCH (20:03)
[2017-12-02 01:48] VITALS: BP 122/73
[2017-12-02 07:59] VITALS: BP 123/72
[2017-12-02] MEDS ORDERED: VENL75CA6 PO (08:26)
[2017-12-02] MEDS ORDERED: TAMS-11 PO (08:26)
[2017-12-02] MEDS ORDERED: RISP0.5T24 PO (08:26)
[2017-12-02] MEDS ORDERED: ATOR20TA9 PO (08:26)
[2017-12-02] MEDS ORDERED: LOSA50TA2 PO (08:26)
[2017-12-02] MEDS ORDERED: HALO1TAB PO (08:26)
[2017-12-02] MEDS ORDERED: METF500T PO (08:26)
[2017-12-02] MEDS ORDERED: DIVA125C PO (08:26)
[2017-12-02] MEDS ORDERED: TRAZ50TA18 PO (08:26)
[2017-12-02] MEDS: TAMSULOSIN 0.4 MG CAP.ER.24H PO SCH (09:07)
[2017-12-02] MEDS: RISPERIDONE 0.5 MG TABLET PO SCH ×2 (09:07→21:28)
[2017-12-02] MEDS: LOSARTAN 50MG TABLET PO SCH (09:08)
[2017-12-02] MEDS: metFORMIN 500 MG TABLET PO SCH ×2 (09:08→16:36)
[2017-12-02] MEDS: VENLAFAXINE 75 MG CAP ER PO SCH (09:08)
[2017-12-02] MEDS: DIVALPROEX 125 MG CAP.SPRINK PO SCH (16:36)
[2017-12-02 18:55] VITALS: BP 127/69
[2017-12-02] MEDS: ENOXAPARIN 40 MG/0.4 ML SQ SCH (21:28)
[2017-12-02] MEDS: ATORVASTATIN 20 MG TABLET PO SCH (21:28)
[2017-12-02] MEDS: TRAZODONE 50MG TABLET PO SCH (21:28)
[2017-12-03 00:42] VITALS: BP_SYST 92; BP_SYST 95; BP_DIAS 50; BP_DIAS 57
[2017-12-03 05:35] LABS: CREATININE 1.44 mg/dL (0.7-1.3)
[2017-12-03 08:11] VITALS: BP 147/86
[2017-12-03] MEDS: TAMSULOSIN 0.4 MG CAP.ER.24H PO SCH (12:01)
[2017-12-03] MEDS: metFORMIN 500 MG TABLET PO SCH ×2 (12:02→18:07)
[2017-12-03] MEDS: LOSARTAN 50MG TABLET PO SCH (12:02)
[2017-12-03] MEDS: RISPERIDONE 0.5 MG TABLET PO SCH ×2 (12:02→20:37)
[2017-12-03] MEDS: VENLAFAXINE 75 MG CAP ER PO SCH (12:06)
[2017-12-03 12:17] VITALS: BP 127/75
[2017-12-03] MEDS: DIVALPROEX 125 MG CAP.SPRINK PO SCH (18:07)
[2017-12-03 20:11] VITALS: BP 110/62
[2017-12-03] MEDS: ENOXAPARIN 40 MG/0.4 ML SQ SCH (20:37)
[2017-12-03] MEDS: TRAZODONE 50MG TABLET PO SCH (20:37)
[2017-12-03] MEDS: ATORVASTATIN 20 MG TABLET PO SCH (20:37)
[2017-12-04 01:13] VITALS: BP 100/54
[2017-12-04 08:07] VITALS: BP 135/65
[2017-12-04] MEDS: VENLAFAXINE 75 MG CAP ER PO SCH (09:00)
[2017-12-04] MEDS: RISPERIDONE 0.5 MG TABLET PO SCH ×2 (10:08→20:24)
[2017-12-04] MEDS: metFORMIN 500 MG TABLET PO SCH ×2 (10:08→18:11)
[2017-12-04] MEDS: TAMSULOSIN 0.4 MG CAP.ER.24H PO SCH (10:09)
[2017-12-04] MEDS: LOSARTAN 50MG TABLET PO SCH (10:09)
[2017-12-04 14:09] VITALS: BP 125/68
[2017-12-04] MEDS: DIVALPROEX 125 MG CAP.SPRINK PO SCH (18:11)
[2017-12-04 19:17] VITALS: BP 104/65
[2017-12-04] MEDS: TRAZODONE 50MG TABLET PO SCH (20:24)
[2017-12-04] MEDS: ATORVASTATIN 20 MG TABLET PO SCH (20:24)
[2017-12-04] MEDS: ENOXAPARIN 40 MG/0.4 ML SQ SCH (20:24)
[2017-12-05 03:20] VITALS: BP 130/60
[2017-12-05 08:00] VITALS: BP 123/67
[2017-12-05] MEDS: VENLAFAXINE 75 MG CAP ER PO SCH (09:00)
[2017-12-05] MEDS: TAMSULOSIN 0.4 MG CAP.ER.24H PO SCH (09:20)
[2017-12-05] MEDS: DOCUSATE 100 MG CAPSULE PO PRN (09:20)
[2017-12-05] MEDS: metFORMIN 500 MG TABLET PO SCH ×2 (09:20→18:15)
[2017-12-05] MEDS: RISPERIDONE 0.5 MG TABLET PO SCH ×2 (09:20→20:19)
[2017-12-05] MEDS: LOSARTAN 50MG TABLET PO SCH (09:21)
[2017-12-05 13:25] VITALS: BP 126/73
[2017-12-05] MEDS: DIVALPROEX 125 MG CAP.SPRINK PO SCH (18:15)
[2017-12-05 18:54] VITALS: BP 137/56
[2017-12-05] MEDS: ATORVASTATIN 20 MG TABLET PO SCH (20:19)
[2017-12-05] MEDS: TRAZODONE 50MG TABLET PO SCH (20:19)
[2017-12-05] MEDS: ENOXAPARIN 40 MG/0.4 ML SQ SCH (20:19)
[2017-12-06 03:48] VITALS: BP 137/82
[2017-12-06 05:53] LABS: CREATININE 1.21 mg/dL (0.7-1.3)
[2017-12-06 06:45] VITALS: BP 126/66
[2017-12-06] MEDS: VENLAFAXINE 75 MG CAP ER PO SCH (09:00)
[2017-12-06] MEDS: RISPERIDONE 0.5 MG TABLET PO SCH ×2 (09:06→20:51)
[2017-12-06] MEDS: TAMSULOSIN 0.4 MG CAP.ER.24H PO SCH (09:06)
[2017-12-06] MEDS: LOSARTAN 50MG TABLET PO SCH (09:06)
[2017-12-06] MEDS: metFORMIN 500 MG TABLET PO SCH ×2 (09:06→18:23)
[2017-12-06 12:30] VITALS: BP 114/79
[2017-12-06] MEDS: DIVALPROEX 125 MG CAP.SPRINK PO SCH (18:24)
[2017-12-06 20:00] VITALS: BP 115/65
[2017-12-06] MEDS: ATORVASTATIN 20 MG TABLET PO SCH (20:51)
[2017-12-06] MEDS: ENOXAPARIN 40 MG/0.4 ML SQ SCH (20:51)
[2017-12-06] MEDS: TRAZODONE 50MG TABLET PO SCH (20:51)
[2017-12-07 04:20] VITALS: BP 120/65
[2017-12-07 06:45] VITALS: BP 117/59
[2017-12-07] MEDS: metFORMIN 500 MG TABLET PO SCH ×2 (08:53→17:31)
[2017-12-07] MEDS: TAMSULOSIN 0.4 MG CAP.ER.24H PO SCH (08:53)
[2017-12-07] MEDS: VENLAFAXINE 75 MG CAP ER PO SCH (08:53)
[2017-12-07] MEDS: RISPERIDONE 0.5 MG TABLET PO SCH ×2 (08:53→21:49)
[2017-12-07] MEDS: LOSARTAN 50MG TABLET PO SCH (08:56)
[2017-12-07 12:15] VITALS: BP 112/65
[2017-12-07] MEDS: DIVALPROEX 125 MG CAP.SPRINK PO SCH (17:31)
[2017-12-07] MEDS: ZIPRASIDONE 20 MG INJ IM PRN (20:09)
[2017-12-07 20:20] VITALS: BP 119/74
[2017-12-07] MEDS: TRAZODONE 50MG TABLET PO SCH (21:49)
[2017-12-07] MEDS: ATORVASTATIN 20 MG TABLET PO SCH (21:55)
[2017-12-07] MEDS: ENOXAPARIN 40 MG/0.4 ML SQ SCH (21:55)
[2017-12-08 00:16] VITALS: BP 137/78
[2017-12-08 00:31] VITALS: BP 128/79
[2017-12-08] MEDS: TAMSULOSIN 0.4 MG CAP.ER.24H PO SCH (07:18)
[2017-12-08] MEDS: VENLAFAXINE 75 MG CAP ER PO SCH (07:18)
[2017-12-08] MEDS: metFORMIN 500 MG TABLET PO SCH ×2 (07:18→17:15)
[2017-12-08] MEDS: RISPERIDONE 0.5 MG TABLET PO SCH ×2 (07:19→20:40)
[2017-12-08] MEDS: LOSARTAN 50MG TABLET PO SCH (07:20)
[2017-12-08 08:10] VITALS: BP 117/73
[2017-12-08 13:46] VITALS: BP 105/64
[2017-12-08] MEDS: DIVALPROEX 125 MG CAP.SPRINK PO SCH (17:15)
[2017-12-08 18:38] VITALS: BP 110/53
[2017-12-08] MEDS: TRAZODONE 50MG TABLET PO SCH (20:39)
[2017-12-08] MEDS: ATORVASTATIN 20 MG TABLET PO SCH (20:40)
[2017-12-08] MEDS: ENOXAPARIN 40 MG/0.4 ML SQ SCH (20:41)
[2017-12-09 02:05] VITALS: BP 146/70
[2017-12-09 05:42] LABS: CREATININE 1.43 mg/dL (0.7-1.3)
[2017-12-09 07:14] VITALS: BP 112/62
[2017-12-09] MEDS: LOSARTAN 50MG TABLET PO SCH (08:15)
[2017-12-09] MEDS: TAMSULOSIN 0.4 MG CAP.ER.24H PO SCH (08:16)
[2017-12-09] MEDS: metFORMIN 500 MG TABLET PO SCH ×2 (08:16→16:52)
[2017-12-09] MEDS: RISPERIDONE 0.5 MG TABLET PO SCH ×2 (08:16→19:48)
[2017-12-09] MEDS: VENLAFAXINE 75 MG CAP ER PO SCH (08:16)
[2017-12-09] MEDS: DIVALPROEX 125 MG CAP.SPRINK PO SCH (16:52)
[2017-12-09 19:22] VITALS: BP 172/82
[2017-12-09] MEDS: ATORVASTATIN 20 MG TABLET PO SCH (19:48)
[2017-12-09] MEDS: TRAZODONE 50MG TABLET PO SCH (19:48)
[2017-12-09] MEDS: ENOXAPARIN 40 MG/0.4 ML SQ SCH (19:51)
[2017-12-10 04:40] VITALS: BP 101/61
[2017-12-10 08:30] VITALS: BP 142/67
[2017-12-10] MEDS: metFORMIN 500 MG TABLET PO SCH ×2 (08:53→17:07)
[2017-12-10] MEDS: RISPERIDONE 0.5 MG TABLET PO SCH ×2 (08:54→19:54)
[2017-12-10] MEDS: TAMSULOSIN 0.4 MG CAP.ER.24H PO SCH (08:54)
[2017-12-10] MEDS: VENLAFAXINE 75 MG CAP ER PO SCH (08:54)
[2017-12-10] MEDS: LOSARTAN 50MG TABLET PO SCH (08:55)
[2017-12-10 13:34] VITALS: BP 123/72
[2017-12-10] MEDS: DIVALPROEX 125 MG CAP.SPRINK PO SCH (17:07)
[2017-12-10] MEDS: ACETAMINOPHEN 325 MG TABLET PO PRN (18:26)
[2017-12-10 18:34] VITALS: BP 133/72
[2017-12-10] MEDS: TRAZODONE 50MG TABLET PO SCH (19:54)
[2017-12-10] MEDS: ATORVASTATIN 20 MG TABLET PO SCH (19:54)
[2017-12-10] MEDS: ENOXAPARIN 40 MG/0.4 ML SQ SCH (19:55)
[2017-12-11 05:40] VITALS: BP 117/68
[2017-12-11] MEDS: LOSARTAN 50MG TABLET PO SCH (07:21)
[2017-12-11] MEDS: metFORMIN 500 MG TABLET PO SCH ×2 (07:21→16:01)
[2017-12-11] MEDS: RISPERIDONE 0.5 MG TABLET PO SCH ×2 (07:21→21:00)
[2017-12-11] MEDS: VENLAFAXINE 75 MG CAP ER PO SCH (07:22)
[2017-12-11] MEDS: TAMSULOSIN 0.4 MG CAP.ER.24H PO SCH (07:22)
[2017-12-11 07:37] VITALS: BP 116/66
[2017-12-11] MEDS: ZIPRASIDONE 20 MG INJ IM PRN (11:21)
[2017-12-11 14:01] VITALS: BP 116/66
[2017-12-11] MEDS: DIVALPROEX 125 MG CAP.SPRINK PO SCH (16:01)
[2017-12-11 19:16] VITALS: BP 149/77
[2017-12-11] MEDS: ATORVASTATIN 20 MG TABLET PO SCH (21:00)
[2017-12-11] MEDS: ENOXAPARIN 40 MG/0.4 ML SQ SCH (21:00)
[2017-12-11] MEDS: TRAZODONE 50MG TABLET PO SCH (21:00)
[2017-12-12 01:08] VITALS: BP 152/87
[2017-12-12 08:30] VITALS: BP 152/79
[2017-12-12] MEDS: VENLAFAXINE 75 MG CAP ER PO SCH (09:00)
[2017-12-12] MEDS: TAMSULOSIN 0.4 MG CAP.ER.24H PO SCH (09:37)
[2017-12-12] MEDS: metFORMIN 500 MG TABLET PO SCH ×2 (09:38→16:52)
[2017-12-12] MEDS: LOSARTAN 50MG TABLET PO SCH (09:38)
[2017-12-12] MEDS: RISPERIDONE 0.5 MG TABLET PO SCH ×2 (09:38→20:58)
[2017-12-12 14:30] VITALS: BP 123/70
[2017-12-12] MEDS ORDERED: ONDANSETRON 2MG/ML, 2ML IVPush PRN (16:42)
[2017-12-12] MEDS: DIVALPROEX 125 MG CAP.SPRINK PO SCH (16:52)
[2017-12-12] MEDS ORDERED: ONDANSETRON ODT 4 MG PO PRN (17:00)
[2017-12-12 19:04] VITALS: BP 120/62
[2017-12-12] MEDS: ATORVASTATIN 20 MG TABLET PO SCH (20:58)
[2017-12-12] MEDS: TRAZODONE 50MG TABLET PO SCH (20:58)
[2017-12-12] MEDS: ENOXAPARIN 40 MG/0.4 ML SQ SCH (21:05)
[2017-12-13 01:59] VITALS: BP 100/58
[2017-12-13 07:18] VITALS: BP 154/76
[2017-12-13] MEDS: metFORMIN 500 MG TABLET PO SCH ×2 (09:23→16:29)
[2017-12-13] MEDS: TAMSULOSIN 0.4 MG CAP.ER.24H PO SCH (09:23)
[2017-12-13] MEDS: RISPERIDONE 0.5 MG TABLET PO SCH ×2 (09:23→20:20)
[2017-12-13] MEDS: LOSARTAN 50MG TABLET PO SCH (09:24)
[2017-12-13] MEDS: VENLAFAXINE 75 MG CAP ER PO SCH (09:24)
[2017-12-13 13:35] VITALS: BP 123/70
[2017-12-13] MEDS: DIVALPROEX 125 MG CAP.SPRINK PO SCH (16:29)
[2017-12-13 18:42] VITALS: BP 150/78
[2017-12-13] MEDS: TRAZODONE 50MG TABLET PO SCH (20:21)
[2017-12-13] MEDS: ATORVASTATIN 20 MG TABLET PO SCH (20:21)
[2017-12-13] MEDS: ENOXAPARIN 40 MG/0.4 ML SQ SCH (20:48)
[2017-12-14 00:03] VITALS: BP 144/70
[2017-12-14 05:45] LABS: CHLORIDE 109 mmol/L (98-107)
[2017-12-14 06:08] LABS: ALANINE AMINOTRANSFERASE 33 U/L (12-78); ALKALINE PHOSPHATASE 98 U/L (45-117); ANION GAP 7 mmol/L (5-15); BILIRUBIN,TOTAL 0.7 mg/dL (0.2-1.0); CALCIUM 8.6 mg/dL (8.5-10.1); CREATININE 1.12 mg/dL (0.7-1.3); TOTAL PROTEIN 6.4 g/dL (6.4-8.2)
[2017-12-14 07:37] VITALS: BP 143/74
[2017-12-14] MEDS: VENLAFAXINE 75 MG CAP ER PO SCH (08:02)
[2017-12-14] MEDS: RISPERIDONE 0.5 MG TABLET PO SCH ×2 (08:02→23:21)
[2017-12-14] MEDS: metFORMIN 500 MG TABLET PO SCH ×2 (08:02→16:10)
[2017-12-14] MEDS: TAMSULOSIN 0.4 MG CAP.ER.24H PO SCH (08:02)
[2017-12-14] MEDS: LOSARTAN 50MG TABLET PO SCH (08:02)
[2017-12-14 12:19] VITALS: BP 132/75
[2017-12-14] MEDS: ACETAMINOPHEN 325 MG TABLET PO PRN (16:11)
[2017-12-14] MEDS: DIVALPROEX 125 MG CAP.SPRINK PO SCH (16:11)
[2017-12-14 19:34] VITALS: BP 134/71
[2017-12-14] MEDS: ENOXAPARIN 40 MG/0.4 ML SQ SCH (21:00)
[2017-12-14] MEDS: TRAZODONE 50MG TABLET PO SCH (23:21)
[2017-12-14] MEDS: ATORVASTATIN 20 MG TABLET PO SCH (23:21)
[2017-12-15 01:18] VITALS: BP 127/64
[2017-12-15 08:06] VITALS: BP 124/69
[2017-12-15] MEDS: RISPERIDONE 0.5 MG TABLET PO SCH ×2 (08:47→22:20)
[2017-12-15] MEDS: TAMSULOSIN 0.4 MG CAP.ER.24H PO SCH (08:47)
[2017-12-15] MEDS: metFORMIN 500 MG TABLET PO SCH ×2 (08:47→16:55)
[2017-12-15] MEDS: VENLAFAXINE 75 MG CAP ER PO SCH (08:48)
[2017-12-15] MEDS: LOSARTAN 50MG TABLET PO SCH (08:48)
[2017-12-15 14:18] VITALS: BP 121/73
[2017-12-15] MEDS: DIVALPROEX 125 MG CAP.SPRINK PO SCH (16:55)
[2017-12-15 18:28] VITALS: BP 165/79
[2017-12-15] MEDS: ENOXAPARIN 40 MG/0.4 ML SQ SCH (22:20)
[2017-12-15] MEDS: ATORVASTATIN 20 MG TABLET PO SCH (22:20)
[2017-12-15] MEDS: TRAZODONE 50MG TABLET PO SCH (22:20)
[2017-12-16 00:51] VITALS: BP 125/67
[2017-12-16 07:22] VITALS: BP 135/77
[2017-12-16] MEDS: LOSARTAN 50MG TABLET PO SCH (09:40)
[2017-12-16] MEDS: metFORMIN 500 MG TABLET PO SCH ×2 (09:40→17:46)
[2017-12-16] MEDS: TAMSULOSIN 0.4 MG CAP.ER.24H PO SCH (09:40)
[2017-12-16] MEDS: RISPERIDONE 0.5 MG TABLET PO SCH ×2 (09:40→21:19)
[2017-12-16] MEDS: VENLAFAXINE 75 MG CAP ER PO SCH (09:41)
[2017-12-16 14:54] VITALS: BP 127/66
[2017-12-16] MEDS: DIVALPROEX 125 MG CAP.SPRINK PO SCH (17:46)
[2017-12-16 18:18] VITALS: BP 143/69
[2017-12-16] MEDS: ENOXAPARIN 40 MG/0.4 ML SQ SCH (21:00)
[2017-12-16] MEDS: TRAZODONE 50MG TABLET PO SCH (21:19)
[2017-12-16] MEDS: ATORVASTATIN 20 MG TABLET PO SCH (21:19)
[2017-12-17 02:19] VITALS: BP 103/58
[2017-12-17] MEDS: VENLAFAXINE 75 MG CAP ER PO SCH (09:00)
[2017-12-17] MEDS: TAMSULOSIN 0.4 MG CAP.ER.24H PO SCH (09:59)
[2017-12-17] MEDS: RISPERIDONE 0.5 MG TABLET PO SCH ×2 (09:59→19:52)
[2017-12-17] MEDS: metFORMIN 500 MG TABLET PO SCH ×2 (09:59→17:19)
[2017-12-17] MEDS: LOSARTAN 50MG TABLET PO SCH (10:00)
[2017-12-17 10:45] VITALS: BP 137/68
[2017-12-17 13:49] VITALS: BP 122/68
[2017-12-17] MEDS: DIVALPROEX 125 MG CAP.SPRINK PO SCH (17:19)
[2017-12-17 18:44] VITALS: BP 152/71
[2017-12-17] MEDS: TRAZODONE 50MG TABLET PO SCH (19:52)
[2017-12-17] MEDS: ATORVASTATIN 20 MG TABLET PO SCH (19:52)
[2017-12-17] MEDS: ENOXAPARIN 40 MG/0.4 ML SQ SCH (19:53)
[2017-12-18 01:57] VITALS: BP 151/74
[2017-12-18 08:58] VITALS: BP 134/72
[2017-12-18] MEDS: LOSARTAN 50MG TABLET PO SCH (10:57)
[2017-12-18] MEDS: metFORMIN 500 MG TABLET PO SCH ×2 (10:57→18:19)
[2017-12-18] MEDS: VENLAFAXINE 75 MG CAP ER PO SCH (10:58)
[2017-12-18] MEDS: RISPERIDONE 0.5 MG TABLET PO SCH ×2 (10:58→19:55)
[2017-12-18] MEDS: TAMSULOSIN 0.4 MG CAP.ER.24H PO SCH (10:58)
[2017-12-18] MEDS: ACETAMINOPHEN 325 MG TABLET PO PRN (12:18)
[2017-12-18 13:17] VITALS: BP 110/64
[2017-12-18] MEDS: DIVALPROEX 125 MG CAP.SPRINK PO SCH (18:19)
[2017-12-18 18:31] VITALS: BP 122/68
[2017-12-18] MEDS: ENOXAPARIN 40 MG/0.4 ML SQ SCH (19:50)
[2017-12-18] MEDS: TRAZODONE 50MG TABLET PO SCH (19:54)
[2017-12-18] MEDS: ATORVASTATIN 20 MG TABLET PO SCH (19:55)
[2017-12-19 00:41] VITALS: BP 139/78
[2017-12-19 06:29] VITALS: BP 152/67
[2017-12-19] MEDS: metFORMIN 500 MG TABLET PO SCH ×2 (08:31→17:13)
[2017-12-19] MEDS: LOSARTAN 50MG TABLET PO SCH (08:31)
[2017-12-19] MEDS: TAMSULOSIN 0.4 MG CAP.ER.24H PO SCH (08:32)
[2017-12-19] MEDS: RISPERIDONE 0.5 MG TABLET PO SCH ×2 (08:32→19:51)
[2017-12-19] MEDS: VENLAFAXINE 75 MG CAP ER PO SCH (08:32)
[2017-12-19 12:08] VITALS: BP 126/72
[2017-12-19] MEDS: DIVALPROEX 125 MG CAP.SPRINK PO SCH (17:13)
[2017-12-19 19:43] VITALS: BP 176/83
[2017-12-19] MEDS: ENOXAPARIN 40 MG/0.4 ML SQ SCH (19:44)
[2017-12-19] MEDS: ATORVASTATIN 20 MG TABLET PO SCH (19:50)
[2017-12-19] MEDS: TRAZODONE 50MG TABLET PO SCH (19:51)
[2017-12-19 21:13] VITALS: BP 122/59
[2017-12-19] MEDS: ZIPRASIDONE 20 MG INJ IM PRN (23:34)
[2017-12-20 05:34] VITALS: BP 109/61
[2017-12-20 07:56] VITALS: BP 121/65
[2017-12-20] MEDS: metFORMIN 500 MG TABLET PO SCH ×2 (07:59→17:02)
[2017-12-20] MEDS: VENLAFAXINE 75 MG CAP ER PO SCH (08:00)
[2017-12-20] MEDS: LOSARTAN 50MG TABLET PO SCH (08:00)
[2017-12-20] MEDS: RISPERIDONE 0.5 MG TABLET PO SCH ×2 (08:00→19:34)
[2017-12-20] MEDS: TAMSULOSIN 0.4 MG CAP.ER.24H PO SCH (08:00)
[2017-12-20 13:38] VITALS: BP 114/65
[2017-12-20] MEDS: DIVALPROEX 125 MG CAP.SPRINK PO SCH (17:02)
[2017-12-20 18:40] VITALS: BP 115/69
[2017-12-20] MEDS: ENOXAPARIN 40 MG/0.4 ML SQ SCH (19:12)
[2017-12-20] MEDS: ATORVASTATIN 20 MG TABLET PO SCH (19:34)
[2017-12-20] MEDS: HALOPERIDOL 1 MG TABLET PO PRN (19:34)
[2017-12-20] MEDS: TRAZODONE 50MG TABLET PO SCH (19:34)
[2017-12-20] MEDS: ZIPRASIDONE 20 MG INJ IM PRN (22:03)
[2017-12-21 03:02] VITALS: BP 110/62
[2017-12-21 05:51] LABS: CREATININE 1.29 mg/dL (0.7-1.3)
[2017-12-21 07:44] VITALS: BP 150/70
[2017-12-21] MEDS: metFORMIN 500 MG TABLET PO SCH ×2 (08:02→17:27)
[2017-12-21] MEDS: TAMSULOSIN 0.4 MG CAP.ER.24H PO SCH (08:03)
[2017-12-21] MEDS: VENLAFAXINE 75 MG CAP ER PO SCH (08:03)
[2017-12-21] MEDS: LOSARTAN 50MG TABLET PO SCH (08:03)
[2017-12-21] MEDS: RISPERIDONE 0.5 MG TABLET PO SCH ×2 (08:03→19:30)
[2017-12-21 13:41] VITALS: BP 124/69
[2017-12-21] MEDS: DIVALPROEX 125 MG CAP.SPRINK PO SCH (17:27)
[2017-12-21 19:05] VITALS: BP 130/71
[2017-12-21] MEDS: HALOPERIDOL 1 MG TABLET PO PRN (19:30)
[2017-12-21] MEDS: ATORVASTATIN 20 MG TABLET PO SCH (19:30)
[2017-12-21] MEDS: TRAZODONE 50MG TABLET PO SCH (19:30)
[2017-12-21] MEDS: ENOXAPARIN 40 MG/0.4 ML SQ SCH (19:31)
[2017-12-22 03:13] VITALS: BP 130/69
[2017-12-22 08:08] VITALS: BP 129/73
[2017-12-22] MEDS: TAMSULOSIN 0.4 MG CAP.ER.24H PO SCH (09:49)
[2017-12-22] MEDS: RISPERIDONE 0.5 MG TABLET PO SCH ×2 (09:49→21:04)
[2017-12-22] MEDS: LOSARTAN 50MG TABLET PO SCH (09:49)
[2017-12-22] MEDS: metFORMIN 500 MG TABLET PO SCH ×2 (09:49→17:28)
[2017-12-22] MEDS: VENLAFAXINE 75 MG CAP ER PO SCH (09:50)
[2017-12-22 14:04] VITALS: BP 102/63
[2017-12-22] MEDS: DIVALPROEX 125 MG CAP.SPRINK PO SCH (17:28)
[2017-12-22 18:51] VITALS: BP 143/71
[2017-12-22] MEDS: ENOXAPARIN 40 MG/0.4 ML SQ SCH (19:18)
[2017-12-22] MEDS: ATORVASTATIN 20 MG TABLET PO SCH (21:04)
[2017-12-22] MEDS: TRAZODONE 50MG TABLET PO SCH (21:04)
[2017-12-23 06:26] VITALS: BP 119/66
[2017-12-23] MEDS: VENLAFAXINE 75 MG CAP ER PO SCH (09:00)
[2017-12-23] MEDS: RISPERIDONE 0.5 MG TABLET PO SCH ×2 (09:22→21:41)
[2017-12-23] MEDS: metFORMIN 500 MG TABLET PO SCH ×2 (09:22→17:23)
[2017-12-23] MEDS: TAMSULOSIN 0.4 MG CAP.ER.24H PO SCH (09:22)
[2017-12-23] MEDS: LOSARTAN 50MG TABLET PO SCH (09:23)
[2017-12-23] MEDS: DIVALPROEX 125 MG CAP.SPRINK PO SCH (17:23)
[2017-12-23 19:05] VITALS: BP 164/79
[2017-12-23] MEDS: ENOXAPARIN 40 MG/0.4 ML SQ SCH (21:00)
[2017-12-23] MEDS: TRAZODONE 50MG TABLET PO SCH (21:41)
[2017-12-23] MEDS: ATORVASTATIN 20 MG TABLET PO SCH (21:41)
[2017-12-24 03:41] VITALS: BP 145/76
[2017-12-24 09:02] VITALS: BP 139/74
[2017-12-24] MEDS: RISPERIDONE 0.5 MG TABLET PO SCH ×2 (09:19→19:54)
[2017-12-24] MEDS: LOSARTAN 50MG TABLET PO SCH (09:19)
[2017-12-24] MEDS: VENLAFAXINE 75 MG CAP ER PO SCH (09:19)
[2017-12-24] MEDS: TAMSULOSIN 0.4 MG CAP.ER.24H PO SCH (09:19)
[2017-12-24] MEDS: metFORMIN 500 MG TABLET PO SCH ×2 (09:19→18:30)
[2017-12-24 17:17] VITALS: BP 149/74
[2017-12-24] MEDS: DIVALPROEX 125 MG CAP.SPRINK PO SCH (18:30)
[2017-12-24 18:34] VITALS: BP 136/79
[2017-12-24] MEDS: TRAZODONE 50MG TABLET PO SCH (19:54)
[2017-12-24] MEDS: ATORVASTATIN 20 MG TABLET PO SCH (19:54)
[2017-12-24] MEDS: ENOXAPARIN 40 MG/0.4 ML SQ SCH (19:57)
[2017-12-25 00:51] VITALS: BP 144/70
[2017-12-25 08:35] VITALS: BP 114/65
[2017-12-25] MEDS: VENLAFAXINE 75 MG CAP ER PO SCH (09:00)
[2017-12-25] MEDS: LOSARTAN 50MG TABLET PO SCH (12:51)
[2017-12-25] MEDS: RISPERIDONE 0.5 MG TABLET PO SCH ×2 (12:51→20:48)
[2017-12-25] MEDS: metFORMIN 500 MG TABLET PO SCH ×2 (12:51→16:37)
[2017-12-25] MEDS: TAMSULOSIN 0.4 MG CAP.ER.24H PO SCH (12:51)
[2017-12-25 13:58] VITALS: BP 146/78
[2017-12-25] MEDS: DIVALPROEX 125 MG CAP.SPRINK PO SCH (16:37)
[2017-12-25 20:39] VITALS: BP 146/66
[2017-12-25] MEDS: ATORVASTATIN 20 MG TABLET PO SCH (20:47)
[2017-12-25] MEDS: TRAZODONE 50MG TABLET PO SCH (20:47)
[2017-12-25] MEDS: ENOXAPARIN 40 MG/0.4 ML SQ SCH (20:48)
[2017-12-26 03:00] VITALS: BP 133/77
[2017-12-26 05:19] LABS: CREATININE 1.31 mg/dL (0.7-1.3)
[2017-12-26 07:23] VITALS: BP 100/57
[2017-12-26] MEDS: RISPERIDONE 0.5 MG TABLET PO SCH ×2 (09:32→19:33)
[2017-12-26] MEDS: VENLAFAXINE 75 MG CAP ER PO SCH (09:32)
[2017-12-26] MEDS: metFORMIN 500 MG TABLET PO SCH ×2 (09:32→17:22)
[2017-12-26] MEDS: TAMSULOSIN 0.4 MG CAP.ER.24H PO SCH (09:32)
[2017-12-26] MEDS: LOSARTAN 50MG TABLET PO SCH (09:33)
[2017-12-26 09:36] VITALS: BP 132/76
[2017-12-26 15:34] VITALS: BP 96/55
[2017-12-26] MEDS: DIVALPROEX 125 MG CAP.SPRINK PO SCH (17:23)
[2017-12-26 18:30] VITALS: BP 131/65
[2017-12-26] MEDS: ATORVASTATIN 20 MG TABLET PO SCH (19:33)
[2017-12-26] MEDS: ENOXAPARIN 40 MG/0.4 ML SQ SCH (19:33)
[2017-12-26] MEDS: TRAZODONE 50MG TABLET PO SCH (19:33)
[2017-12-27] MEDS: LOSARTAN 50MG TABLET PO SCH (09:00)
[2017-12-27] MEDS: VENLAFAXINE 75 MG CAP ER PO SCH (09:00)
[2017-12-27 10:18] VITALS: BP 101/58
[2017-12-27] MEDS: metFORMIN 500 MG TABLET PO SCH ×2 (10:21→18:26)
[2017-12-27] MEDS: TAMSULOSIN 0.4 MG CAP.ER.24H PO SCH (10:21)
[2017-12-27] MEDS: RISPERIDONE 0.5 MG TABLET PO SCH ×2 (10:21→21:13)
[2017-12-27 13:42] VITALS: BP 151/69
[2017-12-27 18:26] VITALS: BP 149/80
[2017-12-27] MEDS: DIVALPROEX 125 MG CAP.SPRINK PO SCH (18:26)
[2017-12-27] MEDS: ATORVASTATIN 20 MG TABLET PO SCH (21:13)
[2017-12-27] MEDS: ENOXAPARIN 40 MG/0.4 ML SQ SCH (21:13)
[2017-12-27] MEDS: TRAZODONE 50MG TABLET PO SCH (21:13)
[2017-12-28 01:09] VITALS: BP 126/55
[2017-12-28 08:33] VITALS: BP 130/59
[2017-12-28] MEDS: metFORMIN 500 MG TABLET PO SCH ×2 (09:00→16:43)
[2017-12-28] MEDS: VENLAFAXINE 75 MG CAP ER PO SCH (09:00)
[2017-12-28] MEDS: TAMSULOSIN 0.4 MG CAP.ER.24H PO SCH (09:00)
[2017-12-28] MEDS: RISPERIDONE 0.5 MG TABLET PO SCH ×2 (09:00→21:30)
[2017-12-28] MEDS: LOSARTAN 50MG TABLET PO SCH (09:01)
[2017-12-28 14:00] VITALS: BP 125/68
[2017-12-28] MEDS: DIVALPROEX 125 MG CAP.SPRINK PO SCH (16:43)
[2017-12-28 19:55] VITALS: BP 148/77
[2017-12-28] MEDS: ATORVASTATIN 20 MG TABLET PO SCH (21:30)
[2017-12-28] MEDS: ENOXAPARIN 40 MG/0.4 ML SQ SCH (21:30)
[2017-12-28] MEDS: TRAZODONE 50MG TABLET PO SCH (21:30)
[2017-12-29 03:40] VITALS: BP 124/57
[2017-12-29 08:12] VITALS: BP 144/75
[2017-12-29] MEDS: TAMSULOSIN 0.4 MG CAP.ER.24H PO SCH (08:14)
[2017-12-29] MEDS: VENLAFAXINE 75 MG CAP ER PO SCH (08:15)
[2017-12-29] MEDS: RISPERIDONE 0.5 MG TABLET PO SCH ×2 (08:15→20:19)
[2017-12-29] MEDS: LOSARTAN 50MG TABLET PO SCH (08:16)
[2017-12-29] MEDS: metFORMIN 500 MG TABLET PO SCH ×2 (08:16→16:47)
[2017-12-29] MEDS: HALOPERIDOL 1 MG TABLET PO PRN (15:14)
[2017-12-29 15:18] VITALS: BP 150/76
[2017-12-29] MEDS: DIVALPROEX 125 MG CAP.SPRINK PO SCH (16:47)
[2017-12-29 18:23] VITALS: BP 160/72
[2017-12-29] MEDS: ATORVASTATIN 20 MG TABLET PO SCH (20:18)
[2017-12-29] MEDS: TRAZODONE 50MG TABLET PO SCH (20:19)
[2017-12-29] MEDS: ENOXAPARIN 40 MG/0.4 ML SQ SCH (20:22)
[2017-12-30] MEDS: VENLAFAXINE 75 MG CAP ER PO SCH (09:00)
[2017-12-30] MEDS: TAMSULOSIN 0.4 MG CAP.ER.24H PO SCH (09:18)
[2017-12-30] MEDS: RISPERIDONE 0.5 MG TABLET PO SCH ×2 (09:20→21:09)
[2017-12-30] MEDS: LOSARTAN 50MG TABLET PO SCH (09:20)
[2017-12-30] MEDS: metFORMIN 500 MG TABLET PO SCH ×2 (09:20→16:37)
[2017-12-30 09:34] VITALS: BP 129/66
[2017-12-30 15:41] VITALS: BP 125/64
[2017-12-30] MEDS: ACETAMINOPHEN 325 MG TABLET PO PRN (16:37)
[2017-12-30] MEDS: DIVALPROEX 125 MG CAP.SPRINK PO SCH (16:37)
[2017-12-30 18:25] VITALS: BP 104/65
[2017-12-30] MEDS: ENOXAPARIN 40 MG/0.4 ML SQ SCH (21:09)
[2017-12-30] MEDS: TRAZODONE 50MG TABLET PO SCH (21:10)
[2017-12-30] MEDS: ATORVASTATIN 20 MG TABLET PO SCH (21:10)
[2017-12-31 03:50] VITALS: BP 113/61
[2017-12-31] MEDS: VENLAFAXINE 75 MG CAP ER PO SCH (09:00)
[2017-12-31] MEDS: TAMSULOSIN 0.4 MG CAP.ER.24H PO SCH (10:20)
[2017-12-31] MEDS: RISPERIDONE 0.5 MG TABLET PO SCH ×2 (10:20→20:25)
[2017-12-31] MEDS: LOSARTAN 50MG TABLET PO SCH (10:21)
[2017-12-31] MEDS: metFORMIN 500 MG TABLET PO SCH ×2 (10:21→17:11)
[2017-12-31 13:45] VITALS: BP 158/76
[2017-12-31] MEDS: DIVALPROEX 125 MG CAP.SPRINK PO SCH (17:11)
[2017-12-31 18:27] VITALS: BP 154/83
[2017-12-31] MEDS: ATORVASTATIN 20 MG TABLET PO SCH (20:25)
[2017-12-31] MEDS: TRAZODONE 50MG TABLET PO SCH (20:25)
[2017-12-31] MEDS: ENOXAPARIN 40 MG/0.4 ML SQ SCH (20:25)
[2018-01-01 01:04] VITALS: BP 119/68
[2018-01-01 07:48] VITALS: BP 146/76
[2018-01-01] MEDS: TAMSULOSIN 0.4 MG CAP.ER.24H PO SCH (08:24)
[2018-01-01] MEDS: LOSARTAN 50MG TABLET PO SCH (08:24)
[2018-01-01] MEDS: metFORMIN 500 MG TABLET PO SCH ×2 (08:25→17:35)
[2018-01-01] MEDS: VENLAFAXINE 75 MG CAP ER PO SCH (08:25)
[2018-01-01] MEDS: RISPERIDONE 0.5 MG TABLET PO SCH ×2 (08:26→21:57)
[2018-01-01 14:30] VITALS: BP 150/77
[2018-01-01] MEDS: DIVALPROEX 125 MG CAP.SPRINK PO SCH (17:35)
[2018-01-01 18:35] VITALS: BP 163/92
[2018-01-01] MEDS: TRAZODONE 50MG TABLET PO SCH (21:56)
[2018-01-01] MEDS: ATORVASTATIN 20 MG TABLET PO SCH (21:56)
[2018-01-01] MEDS: ENOXAPARIN 40 MG/0.4 ML SQ SCH (21:57)
[2018-01-02 06:37] VITALS: BP 121/68
[2018-01-02] MEDS: LOSARTAN 50MG TABLET PO SCH (09:42)
[2018-01-02] MEDS: metFORMIN 500 MG TABLET PO SCH ×2 (09:42→18:05)
[2018-01-02] MEDS: RISPERIDONE 0.5 MG TABLET PO SCH ×2 (09:42→20:27)
[2018-01-02] MEDS: TAMSULOSIN 0.4 MG CAP.ER.24H PO SCH (09:42)
[2018-01-02] MEDS: VENLAFAXINE 75 MG CAP ER PO SCH (09:43)
[2018-01-02 13:05] VITALS: BP 126/76
[2018-01-02] MEDS: DIVALPROEX 125 MG CAP.SPRINK PO SCH (18:05)
[2018-01-02 19:18] VITALS: BP 153/82
[2018-01-02] MEDS: ATORVASTATIN 20 MG TABLET PO SCH (20:27)
[2018-01-02] MEDS: TRAZODONE 50MG TABLET PO SCH (20:27)
[2018-01-02] MEDS: ENOXAPARIN 40 MG/0.4 ML SQ SCH (20:27)
[2018-01-03 03:25] VITALS: BP 117/58
[2018-01-03 06:50] VITALS: BP 121/73
[2018-01-03 08:45] VITALS: BP 136/77
[2018-01-03] MEDS: RISPERIDONE 0.5 MG TABLET PO SCH ×2 (09:07→20:49)
[2018-01-03] MEDS: metFORMIN 500 MG TABLET PO SCH ×2 (09:07→16:54)
[2018-01-03] MEDS: LOSARTAN 50MG TABLET PO SCH (09:07)
[2018-01-03] MEDS: VENLAFAXINE 75 MG CAP ER PO SCH (09:07)
[2018-01-03] MEDS: TAMSULOSIN 0.4 MG CAP.ER.24H PO SCH (09:07)
[2018-01-03 13:43] VITALS: BP 128/73
[2018-01-03] MEDS: DIVALPROEX 125 MG CAP.SPRINK PO SCH (16:55)
[2018-01-03 19:07] VITALS: BP 127/69
[2018-01-03] MEDS: QUETIAPINE 25MG TABLET PO SCH (20:49)
[2018-01-03] MEDS: ENOXAPARIN 40 MG/0.4 ML SQ SCH ×2 (20:49→21:01)
[2018-01-03] MEDS: TRAZODONE 50MG TABLET PO SCH (20:49)
[2018-01-03] MEDS: DONEPEZIL 10 MG TABLET PO SCH (20:50)
[2018-01-03] MEDS: ATORVASTATIN 20 MG TABLET PO SCH (20:50)
[2018-01-04 03:00] VITALS: BP 118/58
[2018-01-04] MEDS: VENLAFAXINE 75 MG CAP ER PO SCH (09:00)
[2018-01-04 09:47] VITALS: BP 121/63
[2018-01-04] MEDS: metFORMIN 500 MG TABLET PO SCH ×2 (09:50→16:59)
[2018-01-04] MEDS: QUETIAPINE 25MG TABLET PO SCH ×2 (09:50→21:00)
[2018-01-04] MEDS: LOSARTAN 50MG TABLET PO SCH (09:51)
[2018-01-04] MEDS: RISPERIDONE 0.5 MG TABLET PO SCH (09:51)
[2018-01-04] MEDS: TAMSULOSIN 0.4 MG CAP.ER.24H PO SCH (09:51)
[2018-01-04 12:35] VITALS: BP 113/74
[2018-01-04] MEDS: DIVALPROEX 125 MG CAP.SPRINK PO SCH (16:59)
[2018-01-04 18:29] VITALS: BP 127/74
[2018-01-04] MEDS: ENOXAPARIN 40 MG/0.4 ML SQ SCH (21:00)
[2018-01-04] MEDS: ATORVASTATIN 20 MG TABLET PO SCH (21:00)
[2018-01-04] MEDS: TRAZODONE 50MG TABLET PO SCH (21:00)
[2018-01-04] MEDS: DONEPEZIL 10 MG TABLET PO SCH (21:00)
[2018-01-05 01:13] VITALS: BP 134/79
[2018-01-05 06:56] VITALS: BP 146/69
[2018-01-05] MEDS: LOSARTAN 50MG TABLET PO SCH (08:28)
[2018-01-05] MEDS: QUETIAPINE 25MG TABLET PO SCH ×2 (08:28→20:51)
[2018-01-05] MEDS: TAMSULOSIN 0.4 MG CAP.ER.24H PO SCH (08:28)
[2018-01-05] MEDS: metFORMIN 500 MG TABLET PO SCH ×2 (08:28→16:57)
[2018-01-05] MEDS: VENLAFAXINE 75 MG CAP ER PO SCH (08:29)
[2018-01-05 15:41] VITALS: BP 138/72
[2018-01-05] MEDS: DIVALPROEX 125 MG CAP.SPRINK PO SCH (16:57)
[2018-01-05 20:15] VITALS: BP 148/65
[2018-01-05] MEDS: ATORVASTATIN 20 MG TABLET PO SCH (20:50)
[2018-01-05] MEDS: DOCUSATE 100 MG CAPSULE PO PRN (20:50)
[2018-01-05] MEDS: TRAZODONE 50MG TABLET PO SCH (20:51)
[2018-01-05] MEDS: DONEPEZIL 10 MG TABLET PO SCH (20:51)
[2018-01-05] MEDS: ENOXAPARIN 40 MG/0.4 ML SQ SCH (20:52)
[2018-01-06 03:21] VITALS: BP 141/62
[2018-01-06 06:49] VITALS: BP 127/71
[2018-01-06] MEDS: VENLAFAXINE 75 MG CAP ER PO SCH (10:19)
[2018-01-06] MEDS: LOSARTAN 50MG TABLET PO SCH (10:20)
[2018-01-06] MEDS: ACETAMINOPHEN 325 MG TABLET PO PRN (10:20)
[2018-01-06] MEDS: TAMSULOSIN 0.4 MG CAP.ER.24H PO SCH (10:21)
[2018-01-06] MEDS: metFORMIN 500 MG TABLET PO SCH ×2 (10:21→17:11)
[2018-01-06] MEDS: QUETIAPINE 25MG TABLET PO SCH ×2 (10:21→21:48)
[2018-01-06 14:41] VITALS: BP 108/57
[2018-01-06] MEDS: DIVALPROEX 125 MG CAP.SPRINK PO SCH (17:11)
[2018-01-06 18:54] VITALS: BP 161/78
[2018-01-06] MEDS: ENOXAPARIN 40 MG/0.4 ML SQ SCH (21:00)
[2018-01-06] MEDS: ATORVASTATIN 20 MG TABLET PO SCH (21:48)
[2018-01-06] MEDS: DONEPEZIL 10 MG TABLET PO SCH (21:48)
[2018-01-06] MEDS: TRAZODONE 50MG TABLET PO SCH (21:48)
[2018-01-07 03:16] VITALS: BP 116/57
[2018-01-07 07:05] VITALS: BP 119/63
[2018-01-07] MEDS: LOSARTAN 50MG TABLET PO SCH (11:38)
[2018-01-07] MEDS: VENLAFAXINE 75 MG CAP ER PO SCH (11:38)
[2018-01-07] MEDS: TAMSULOSIN 0.4 MG CAP.ER.24H PO SCH (11:39)
[2018-01-07] MEDS: QUETIAPINE 25MG TABLET PO SCH ×2 (11:39→20:22)
[2018-01-07 12:35] VITALS: BP 95/62
[2018-01-07 12:48] VITALS: BP 109/67
[2018-01-07] MEDS: DIVALPROEX 125 MG CAP.SPRINK PO SCH (17:40)
[2018-01-07 18:45] VITALS: BP 164/71
[2018-01-07] MEDS: TRAZODONE 50MG TABLET PO SCH (20:22)
[2018-01-07] MEDS: ATORVASTATIN 20 MG TABLET PO SCH (20:22)
[2018-01-07] MEDS: DONEPEZIL 10 MG TABLET PO SCH (20:22)
[2018-01-07] MEDS: ENOXAPARIN 40 MG/0.4 ML SQ SCH (20:23)
[2018-01-08 01:29] VITALS: BP 121/70
[2018-01-08 05:57] LABS: HEMOGLOBIN A1C 6.3 % (4.2-6.3)
[2018-01-08 06:54] VITALS: BP 145/71
[2018-01-08 07:45] VITALS: BP 145/91
[2018-01-08] MEDS: LOSARTAN 50MG TABLET PO SCH (08:31)
[2018-01-08] MEDS: VENLAFAXINE 75 MG CAP ER PO SCH (08:31)
[2018-01-08] MEDS: TAMSULOSIN 0.4 MG CAP.ER.24H PO SCH (08:31)
[2018-01-08] MEDS: QUETIAPINE 25MG TABLET PO SCH ×2 (08:31→20:40)
[2018-01-08] MEDS: ASPIRIN 81 MG TABLET EC PO SCH (08:31)
[2018-01-08 12:45] VITALS: BP 107/52
[2018-01-08 13:24] VITALS: BP 122/58
[2018-01-08] MEDS: DIVALPROEX 125 MG CAP.SPRINK PO SCH (18:11)
[2018-01-08 19:23] VITALS: BP 164/67
[2018-01-08] MEDS: TRAZODONE 50MG TABLET PO SCH (20:39)
[2018-01-08] MEDS: ATORVASTATIN 20 MG TABLET PO SCH (20:39)
[2018-01-08] MEDS: DONEPEZIL 10 MG TABLET PO SCH (20:40)
[2018-01-08] MEDS: ENOXAPARIN 40 MG/0.4 ML SQ SCH (20:40)
[2018-01-09 02:03] VITALS: BP 123/62
[2018-01-09] MEDS: ASPIRIN 81 MG TABLET EC PO SCH (06:39)
[2018-01-09 08:16] VITALS: BP 133/70
[2018-01-09] MEDS: VENLAFAXINE 75 MG CAP ER PO SCH (11:19)
[2018-01-09] MEDS: TAMSULOSIN 0.4 MG CAP.ER.24H PO SCH (11:20)
[2018-01-09] MEDS: LOSARTAN 50MG TABLET PO SCH (11:20)
[2018-01-09] MEDS: QUETIAPINE 25MG TABLET PO SCH ×2 (11:20→20:22)
[2018-01-09 15:14] VITALS: BP 144/77
[2018-01-09] MEDS: DIVALPROEX 125 MG CAP.SPRINK PO SCH (17:10)
[2018-01-09 19:32] VITALS: BP 172/75
[2018-01-09] MEDS: ENOXAPARIN 40 MG/0.4 ML SQ SCH (20:19)
[2018-01-09] MEDS: TRAZODONE 50MG TABLET PO SCH (20:22)
[2018-01-09] MEDS: ATORVASTATIN 20 MG TABLET PO SCH (20:22)
[2018-01-09] MEDS: DONEPEZIL 10 MG TABLET PO SCH (20:22)
[2018-01-10 03:06] VITALS: BP 144/70
[2018-01-10] MEDS: ASPIRIN 81 MG TABLET EC PO SCH (06:34)
[2018-01-10 07:23] VITALS: BP 124/68
[2018-01-10] MEDS: TAMSULOSIN 0.4 MG CAP.ER.24H PO SCH (08:45)
[2018-01-10] MEDS: QUETIAPINE 25MG TABLET PO SCH ×2 (08:46→20:02)
[2018-01-10] MEDS: VENLAFAXINE 75 MG CAP ER PO SCH (08:46)
[2018-01-10] MEDS: LOSARTAN 50MG TABLET PO SCH (08:46)
[2018-01-10 14:42] VITALS: BP 112/68
[2018-01-10] MEDS: DIVALPROEX 125 MG CAP.SPRINK PO SCH (17:41)
[2018-01-10] MEDS: CARVEDILOL 3.125 MG TABLET PO SCH (17:41)
[2018-01-10 19:55] VITALS: BP 134/68
[2018-01-10] MEDS: DONEPEZIL 10 MG TABLET PO SCH (20:03)
[2018-01-10] MEDS: ATORVASTATIN 20 MG TABLET PO SCH (20:03)
[2018-01-10] MEDS: TRAZODONE 50MG TABLET PO SCH (20:03)
[2018-01-10] MEDS: ENOXAPARIN 40 MG/0.4 ML SQ SCH (20:05)
[2018-01-11 01:05] VITALS: BP 128/64
[2018-01-11] MEDS: ASPIRIN 81 MG TABLET EC PO SCH (05:59)
[2018-01-11] MEDS: CARVEDILOL 3.125 MG TABLET PO SCH ×2 (05:59→16:23)
[2018-01-11 06:52] VITALS: BP 110/62
[2018-01-11] MEDS: TAMSULOSIN 0.4 MG CAP.ER.24H PO SCH (08:56)
[2018-01-11] MEDS: LOSARTAN 50MG TABLET PO SCH (08:56)
[2018-01-11] MEDS: VENLAFAXINE 75 MG CAP ER PO SCH (08:56)
[2018-01-11] MEDS: QUETIAPINE 25MG TABLET PO SCH ×2 (08:57→20:14)
[2018-01-11 13:59] VITALS: BP 136/79
[2018-01-11] MEDS: DIVALPROEX 125 MG CAP.SPRINK PO SCH (16:22)
[2018-01-11 18:44] VITALS: BP 132/73
[2018-01-11] MEDS: ATORVASTATIN 20 MG TABLET PO SCH (20:13)
[2018-01-11] MEDS: DONEPEZIL 10 MG TABLET PO SCH (20:14)
[2018-01-11] MEDS: TRAZODONE 50MG TABLET PO SCH (20:14)
[2018-01-11] MEDS: ENOXAPARIN 40 MG/0.4 ML SQ SCH (20:20)
[2018-01-12 01:47] VITALS: BP 106/62
[2018-01-12] MEDS: ASPIRIN 81 MG TABLET EC PO SCH (06:18)
[2018-01-12] MEDS: CARVEDILOL 3.125 MG TABLET PO SCH ×2 (06:18→18:35)
[2018-01-12 06:50] VITALS: BP 108/58
[2018-01-12] MEDS: VENLAFAXINE 75 MG CAP ER PO SCH (09:29)
[2018-01-12] MEDS: TAMSULOSIN 0.4 MG CAP.ER.24H PO SCH (09:29)
[2018-01-12] MEDS: LOSARTAN 50MG TABLET PO SCH (09:29)
[2018-01-12] MEDS: QUETIAPINE 25MG TABLET PO SCH ×2 (09:29→21:31)
[2018-01-12] MEDS: DIVALPROEX 125 MG CAP.SPRINK PO SCH (18:34)
[2018-01-12 19:04] VITALS: BP 132/70
[2018-01-12] MEDS: ENOXAPARIN 40 MG/0.4 ML SQ SCH ×2 (21:00→21:32)
[2018-01-12] MEDS: ATORVASTATIN 20 MG TABLET PO SCH (21:31)
[2018-01-12] MEDS: TRAZODONE 50MG TABLET PO SCH (21:31)
[2018-01-12] MEDS: DONEPEZIL 10 MG TABLET PO SCH (21:31)
[2018-01-13 02:57] VITALS: BP 130/63
[2018-01-13] MEDS: CARVEDILOL 3.125 MG TABLET PO SCH ×2 (06:00→18:31)
[2018-01-13 06:33] VITALS: BP 105/55
[2018-01-13] MEDS: ASPIRIN 81 MG TABLET EC PO SCH (06:39)
[2018-01-13 08:08] VITALS: BP 127/76
[2018-01-13] MEDS: VENLAFAXINE 75 MG CAP ER PO SCH (10:05)
[2018-01-13] MEDS: QUETIAPINE 25MG TABLET PO SCH ×2 (10:05→21:28)
[2018-01-13] MEDS: TAMSULOSIN 0.4 MG CAP.ER.24H PO SCH (10:05)
[2018-01-13] MEDS: LOSARTAN 50MG TABLET PO SCH (10:05)
[2018-01-13 15:37] VITALS: BP 146/74
[2018-01-13] MEDS: DIVALPROEX 125 MG CAP.SPRINK PO SCH (17:37)
[2018-01-13 18:58] VITALS: BP 135/70
[2018-01-13] MEDS: ENOXAPARIN 40 MG/0.4 ML SQ SCH (21:00)
[2018-01-13] MEDS: TRAZODONE 50MG TABLET PO SCH (21:27)
[2018-01-13] MEDS: ATORVASTATIN 20 MG TABLET PO SCH (21:27)
[2018-01-13] MEDS: DONEPEZIL 10 MG TABLET PO SCH (21:27)
[2018-01-14 03:49] VITALS: BP 100/55
[2018-01-14] MEDS: CARVEDILOL 3.125 MG TABLET PO SCH ×2 (05:16→18:33)
[2018-01-14] MEDS: ASPIRIN 81 MG TABLET EC PO SCH (05:16)
[2018-01-14 06:25] VITALS: BP_SYST 125; BP_SYST 143; BP_DIAS 70; BP_DIAS 71
[2018-01-14] MEDS: LOSARTAN 50MG TABLET PO SCH (09:18)
[2018-01-14] MEDS: TAMSULOSIN 0.4 MG CAP.ER.24H PO SCH (09:18)
[2018-01-14] MEDS: VENLAFAXINE 75 MG CAP ER PO SCH (09:18)
[2018-01-14] MEDS: QUETIAPINE 25MG TABLET PO SCH ×2 (09:19→20:39)
[2018-01-14 13:00] VITALS: BP 111/57
[2018-01-14] MEDS: DIVALPROEX 125 MG CAP.SPRINK PO SCH (18:33)
[2018-01-14 18:52] VITALS: BP 148/74
[2018-01-14] MEDS: TRAZODONE 50MG TABLET PO SCH (20:39)
[2018-01-14] MEDS: DONEPEZIL 10 MG TABLET PO SCH (20:39)
[2018-01-14] MEDS: ATORVASTATIN 20 MG TABLET PO SCH (20:39)
[2018-01-14] MEDS: ENOXAPARIN 40 MG/0.4 ML SQ SCH (21:00)
[2018-01-15 02:54] VITALS: BP 105/50
[2018-01-15] MEDS: ASPIRIN 81 MG TABLET EC PO SCH (06:00)
[2018-01-15] MEDS: CARVEDILOL 3.125 MG TABLET PO SCH ×2 (06:00→16:14)
[2018-01-15 06:46] VITALS: BP 116/59
[2018-01-15 07:30] VITALS: BP 135/74
[2018-01-15] MEDS: VENLAFAXINE 75 MG CAP ER PO SCH (07:51)
[2018-01-15] MEDS: LOSARTAN 50MG TABLET PO SCH (07:51)
[2018-01-15] MEDS: QUETIAPINE 25MG TABLET PO SCH ×2 (07:52→21:28)
[2018-01-15] MEDS: TAMSULOSIN 0.4 MG CAP.ER.24H PO SCH (07:52)
[2018-01-15 14:00] VITALS: BP_SYST 158; BP_SYST 167; BP_DIAS 76; BP_DIAS 79
[2018-01-15] MEDS: DIVALPROEX 125 MG CAP.SPRINK PO SCH (16:15)
[2018-01-15] MEDS: ZIPRASIDONE 20 MG INJ IM PRN (16:18)
[2018-01-15 19:04] VITALS: BP 90/50
[2018-01-15] MEDS: ENOXAPARIN 40 MG/0.4 ML SQ SCH (20:50)
[2018-01-15 20:52] VITALS: BP 99/64
[2018-01-15] MEDS: ATORVASTATIN 20 MG TABLET PO SCH (21:28)
[2018-01-15] MEDS: TRAZODONE 50MG TABLET PO SCH (21:28)
[2018-01-15] MEDS: DONEPEZIL 10 MG TABLET PO SCH (21:28)
[2018-01-15] MEDS: ACETAMINOPHEN 325 MG TABLET PO PRN (21:31)
[2018-01-16 02:30] VITALS: BP 135/69
[2018-01-16] MEDS: ASPIRIN 81 MG TABLET EC PO SCH (05:59)
[2018-01-16] MEDS: CARVEDILOL 3.125 MG TABLET PO SCH ×2 (05:59→17:31)
[2018-01-16 06:34] VITALS: BP 134/55
[2018-01-16] MEDS: TAMSULOSIN 0.4 MG CAP.ER.24H PO SCH (09:39)
[2018-01-16] MEDS: QUETIAPINE 25MG TABLET PO SCH ×2 (09:40→21:28)
[2018-01-16] MEDS: VENLAFAXINE 75 MG CAP ER PO SCH (09:40)
[2018-01-16] MEDS: LOSARTAN 50MG TABLET PO SCH (09:40)
[2018-01-16 15:23] VITALS: BP 119/69
[2018-01-16] MEDS: ZIPRASIDONE 20 MG INJ IM PRN (15:46)
[2018-01-16] MEDS: DIVALPROEX 125 MG CAP.SPRINK PO SCH (17:30)
[2018-01-16] MEDS: ENOXAPARIN 40 MG/0.4 ML SQ SCH (21:00)
[2018-01-16 21:21] VITALS: BP 125/52
[2018-01-16] MEDS: DONEPEZIL 10 MG TABLET PO SCH (21:28)
[2018-01-16] MEDS: TRAZODONE 50MG TABLET PO SCH (21:28)
[2018-01-16] MEDS: ATORVASTATIN 20 MG TABLET PO SCH (21:28)
[2018-01-17 01:01] VITALS: BP 120/62
[2018-01-17] MEDS: CARVEDILOL 3.125 MG TABLET PO SCH ×2 (06:20→18:00)
[2018-01-17] MEDS: ASPIRIN 81 MG TABLET EC PO SCH (06:20)
[2018-01-17 08:01] VITALS: BP 126/70
[2018-01-17] MEDS: LOSARTAN 50MG TABLET PO SCH (08:13)
[2018-01-17] MEDS: TAMSULOSIN 0.4 MG CAP.ER.24H PO SCH (08:14)
[2018-01-17] MEDS: VENLAFAXINE 75 MG CAP ER PO SCH (08:14)
[2018-01-17] MEDS: QUETIAPINE 25MG TABLET PO SCH ×2 (08:14→21:08)
[2018-01-17 15:59] VITALS: BP 161/83
[2018-01-17] MEDS: DIVALPROEX 125 MG CAP.SPRINK PO SCH (17:00)
[2018-01-17 18:55] VITALS: BP 151/70
[2018-01-17] MEDS: TRAZODONE 50MG TABLET PO SCH (21:08)
[2018-01-17] MEDS: ATORVASTATIN 20 MG TABLET PO SCH (21:08)
[2018-01-17] MEDS: DONEPEZIL 10 MG TABLET PO SCH (21:08)
[2018-01-17] MEDS: ENOXAPARIN 40 MG/0.4 ML SQ SCH (21:08)
[2018-01-18] MEDS: ASPIRIN 81 MG TABLET EC PO SCH (06:19)
[2018-01-18] MEDS: CARVEDILOL 3.125 MG TABLET PO SCH ×2 (06:19→17:48)
[2018-01-18 06:23] VITALS: BP 127/67
[2018-01-18] MEDS: VENLAFAXINE 75 MG CAP ER PO SCH (08:51)
[2018-01-18] MEDS: LOSARTAN 50MG TABLET PO SCH (08:52)
[2018-01-18] MEDS: DOCUSATE 100 MG CAPSULE PO PRN (08:52)
[2018-01-18] MEDS: QUETIAPINE 25MG TABLET PO SCH ×2 (08:52→21:58)
[2018-01-18] MEDS: TAMSULOSIN 0.4 MG CAP.ER.24H PO SCH (08:52)
[2018-01-18] MEDS ORDERED: QUETIAPINE 25MG TABLET PO PRN (12:30)
[2018-01-18 12:38] VITALS: BP 106/63
[2018-01-18] MEDS: DIVALPROEX 125 MG CAP.SPRINK PO SCH (17:47)
[2018-01-18 19:29] VITALS: BP 148/76
[2018-01-18] MEDS: ENOXAPARIN 40 MG/0.4 ML SQ SCH (21:58)
[2018-01-18] MEDS: ATORVASTATIN 20 MG TABLET PO SCH (21:58)
[2018-01-18] MEDS: DONEPEZIL 10 MG TABLET PO SCH (21:58)
[2018-01-18] MEDS: TRAZODONE 50MG TABLET PO SCH (21:58)
[2018-01-19 04:06] VITALS: BP 137/73
[2018-01-19 06:38] VITALS: BP 135/72
[2018-01-19] MEDS: TAMSULOSIN 0.4 MG CAP.ER.24H PO SCH (08:46)
[2018-01-19] MEDS: VENLAFAXINE 75 MG CAP ER PO SCH (08:47)
[2018-01-19] MEDS: CARVEDILOL 3.125 MG TABLET PO SCH ×2 (08:47→17:55)
[2018-01-19] MEDS: QUETIAPINE 25MG TABLET PO SCH ×2 (08:47→21:46)
[2018-01-19] MEDS: LOSARTAN 50MG TABLET PO SCH (08:48)
[2018-01-19] MEDS: ASPIRIN 81 MG TABLET EC PO SCH (08:48)
[2018-01-19 13:37] VITALS: BP 107/61
[2018-01-19] MEDS: DIVALPROEX 125 MG CAP.SPRINK PO SCH (17:55)
[2018-01-19 19:39] VITALS: BP 148/61
[2018-01-19] MEDS: ATORVASTATIN 20 MG TABLET PO SCH (21:42)
[2018-01-19] MEDS: TRAZODONE 50MG TABLET PO SCH (21:42)
[2018-01-19] MEDS: ENOXAPARIN 40 MG/0.4 ML SQ SCH (21:46)
[2018-01-19] MEDS: DONEPEZIL 10 MG TABLET PO SCH (21:47)
[2018-01-20 01:17] VITALS: BP 139/64
[2018-01-20 06:58] VITALS: BP 101/59
[2018-01-20] MEDS: QUETIAPINE 25MG TABLET PO SCH ×2 (08:50→19:58)
[2018-01-20] MEDS: LOSARTAN 50MG TABLET PO SCH (08:50)
[2018-01-20] MEDS: CARVEDILOL 3.125 MG TABLET PO SCH ×2 (08:50→17:59)
[2018-01-20] MEDS: TAMSULOSIN 0.4 MG CAP.ER.24H PO SCH (08:51)
[2018-01-20] MEDS: VENLAFAXINE 75 MG CAP ER PO SCH (08:51)
[2018-01-20] MEDS: ASPIRIN 81 MG TABLET EC PO SCH (08:51)
[2018-01-20 13:14] VITALS: BP 131/74
[2018-01-20] MEDS: DIVALPROEX 125 MG CAP.SPRINK PO SCH (17:59)
[2018-01-20 18:36] VITALS: BP 117/70
[2018-01-20] MEDS: ATORVASTATIN 20 MG TABLET PO SCH (19:58)
[2018-01-20] MEDS: TRAZODONE 50MG TABLET PO SCH (19:58)
[2018-01-20] MEDS: DONEPEZIL 10 MG TABLET PO SCH (19:58)
[2018-01-20] MEDS: ENOXAPARIN 40 MG/0.4 ML SQ SCH (19:59)
[2018-01-21 01:33] VITALS: BP 132/70
[2018-01-21] MEDS: ASPIRIN 81 MG TABLET EC PO SCH (06:13)
[2018-01-21] MEDS: CARVEDILOL 3.125 MG TABLET PO SCH ×2 (06:13→18:01)
[2018-01-21 06:47] VITALS: BP 125/63
[2018-01-21] MEDS: TAMSULOSIN 0.4 MG CAP.ER.24H PO SCH (09:29)
[2018-01-21] MEDS: VENLAFAXINE 75 MG CAP ER PO SCH (09:29)
[2018-01-21] MEDS: QUETIAPINE 25MG TABLET PO SCH ×2 (09:29→21:11)
[2018-01-21] MEDS: LOSARTAN 50MG TABLET PO SCH (09:29)
[2018-01-21 09:30] VITALS: BP 133/70
[2018-01-21 14:30] VITALS: BP 112/54
[2018-01-21] MEDS: DIVALPROEX 125 MG CAP.SPRINK PO SCH (18:01)
[2018-01-21 18:46] VITALS: BP 114/78
[2018-01-21] MEDS: ENOXAPARIN 40 MG/0.4 ML SQ SCH ×2 (21:00→21:15)
[2018-01-21] MEDS: TRAZODONE 50MG TABLET PO SCH (21:11)
[2018-01-21] MEDS: ATORVASTATIN 20 MG TABLET PO SCH (21:11)
[2018-01-21] MEDS: DONEPEZIL 10 MG TABLET PO SCH (21:12)
[2018-01-22 01:05] VITALS: BP 118/72
[2018-01-22 04:54] LABS: CREATININE 1.22 mg/dL (0.7-1.3)
[2018-01-22] MEDS: ASPIRIN 81 MG TABLET EC PO SCH (05:42)
[2018-01-22] MEDS: CARVEDILOL 3.125 MG TABLET PO SCH ×2 (05:42→18:24)
[2018-01-22 08:00] VITALS: BP 117/80
[2018-01-22] MEDS: QUETIAPINE 25MG TABLET PO SCH ×2 (09:46→22:08)
[2018-01-22] MEDS: LOSARTAN 50MG TABLET PO SCH (09:46)
[2018-01-22] MEDS: VENLAFAXINE 75 MG CAP ER PO SCH (09:46)
[2018-01-22] MEDS: TAMSULOSIN 0.4 MG CAP.ER.24H PO SCH (09:47)
[2018-01-22 10:25] LABS: BASOPHILS # (AUTO) 0.05 x10^3/uL (0-0.1); BASOPHILS % (AUTO) 1 % (0-1); EOSINOPHILS # (AUTO) 0.13 x10^3/uL (0-0.4); EOSINOPHILS % (AUTO) 2 % (1-7); LYMPHOCYTES # (AUTO) 1.77 x10^3/uL (1-3.4); LYMPHOCYTES % (AUTO) 21 % (22-44); MD NO; MEAN CORPUSCULAR HGB CONC 33.5 g/dL (33.2-36.2); MEAN CORPUSCULAR VOLUME 98.7 fL (81-97); MEAN PLATELET VOLUME 8.3 fL (7.4-10.4); MONOCYTES # (AUTO) 0.47 x10^3/uL (0.2-0.8); MONOCYTES % (AUTO) 6 % (2-9); NEUTROPHILS # (AUTO) 5.98 x10^3/uL (1.8-6.8); NEUTROPHILS % (AUTO) 71 % (42-75); PLATELET COUNT 186 x10^3/uL (130-400); RED BLOOD COUNT 3.62 x10^6/uL (4.38-5.82); RED CELL DISTRIBUTION WIDTH 13.8 % (9.4-14.8)
[2018-01-22 10:38] LABS: ANION GAP 7 mmol/L (5-15); CALCIUM 8.4 mg/dL (8.5-10.1); CHLORIDE 105 mmol/L (98-107); CREATININE 1.35 mg/dL (0.7-1.3)
[2018-01-22 10:39] LABS: ALBUMIN 3.5 g/dL (3.4-5.0)
[2018-01-22 14:00] VITALS: BP 134/84
[2018-01-22] MEDS: DIVALPROEX 125 MG CAP.SPRINK PO SCH (18:23)
[2018-01-22 18:39] VITALS: BP 149/53
[2018-01-22] MEDS: ENOXAPARIN 40 MG/0.4 ML SQ SCH (21:00)
[2018-01-22] MEDS: DONEPEZIL 10 MG TABLET PO SCH (22:07)
[2018-01-22] MEDS: ATORVASTATIN 20 MG TABLET PO SCH (22:08)
[2018-01-22] MEDS: TRAZODONE 50MG TABLET PO SCH (22:08)
[2018-01-23 02:24] VITALS: BP 136/73
[2018-01-23] MEDS: CARVEDILOL 3.125 MG TABLET PO SCH ×2 (06:29→20:27)
[2018-01-23] MEDS: ASPIRIN 81 MG TABLET EC PO SCH (06:29)
[2018-01-23 07:43] VITALS: BP 131/71
[2018-01-23] MEDS: LOSARTAN 50MG TABLET PO SCH (10:59)
[2018-01-23] MEDS: QUETIAPINE 25MG TABLET PO SCH ×2 (10:59→20:24)
[2018-01-23] MEDS: VENLAFAXINE 75 MG CAP ER PO SCH (11:00)
[2018-01-23] MEDS: TAMSULOSIN 0.4 MG CAP.ER.24H PO SCH (11:00)
[2018-01-23 13:25] VITALS: BP 139/72
[2018-01-23] MEDS: AMLODIPINE 5 MG TABLET PO SCH (13:29)
[2018-01-23 19:09] VITALS: BP 177/73
[2018-01-23] MEDS: ATORVASTATIN 20 MG TABLET PO SCH (20:24)
[2018-01-23] MEDS: DONEPEZIL 10 MG TABLET PO SCH (20:24)
[2018-01-23] MEDS: TRAZODONE 50MG TABLET PO SCH (20:24)
[2018-01-23] MEDS: DIVALPROEX 125 MG CAP.SPRINK PO SCH (20:25)
[2018-01-23 20:44] VITALS: BP 125/74
[2018-01-24 01:07] VITALS: BP 120/71
[2018-01-24] MEDS: CARVEDILOL 3.125 MG TABLET PO SCH ×2 (06:26→18:36)
[2018-01-24] MEDS: ASPIRIN 81 MG TABLET EC PO SCH (06:26)
[2018-01-24 06:31] VITALS: BP 125/74
[2018-01-24 07:15] VITALS: BP 127/64
[2018-01-24] MEDS: TAMSULOSIN 0.4 MG CAP.ER.24H PO SCH (09:10)
[2018-01-24] MEDS: QUETIAPINE 25MG TABLET PO SCH ×2 (09:11→20:29)
[2018-01-24] MEDS: VENLAFAXINE 75 MG CAP ER PO SCH (09:11)
[2018-01-24] MEDS: AMLODIPINE 5 MG TABLET PO SCH (09:11)
[2018-01-24 11:57] VITALS: BP 95/50
[2018-01-24 14:22] VITALS: BP 123/57
[2018-01-24] MEDS: DIVALPROEX 125 MG CAP.SPRINK PO SCH (17:06)
[2018-01-24 18:20] VITALS: BP 124/57
[2018-01-24] MEDS: ATORVASTATIN 20 MG TABLET PO SCH (20:29)
[2018-01-24] MEDS: TRAZODONE 50MG TABLET PO SCH (20:29)
[2018-01-24] MEDS: DONEPEZIL 10 MG TABLET PO SCH (20:30)
[2018-01-25 04:49] VITALS: BP 124/62
[2018-01-25] MEDS: CARVEDILOL 3.125 MG TABLET PO SCH ×2 (05:02→17:35)
[2018-01-25 06:03] LABS: CREATININE 1.34 mg/dL (0.7-1.3)
[2018-01-25 08:30] VITALS: BP 138/61
[2018-01-25] MEDS: VENLAFAXINE 75 MG CAP ER PO SCH (09:35)
[2018-01-25] MEDS: ASPIRIN 81 MG TABLET EC PO SCH (09:35)
[2018-01-25] MEDS: QUETIAPINE 25MG TABLET PO SCH ×2 (09:36→19:32)
[2018-01-25] MEDS: AMLODIPINE 5 MG TABLET PO SCH (09:36)
[2018-01-25] MEDS: TAMSULOSIN 0.4 MG CAP.ER.24H PO SCH (09:36)
[2018-01-25 13:30] VITALS: BP 117/54
[2018-01-25] MEDS: DIVALPROEX 125 MG CAP.SPRINK PO SCH (17:35)
[2018-01-25 18:14] VITALS: BP 130/64
[2018-01-25] MEDS: TRAZODONE 50MG TABLET PO SCH (19:31)
[2018-01-25] MEDS: DONEPEZIL 10 MG TABLET PO SCH (19:31)
[2018-01-25] MEDS: ATORVASTATIN 20 MG TABLET PO SCH (19:32)
[2018-01-26 02:29] VITALS: BP 130/71
[2018-01-26] MEDS: CARVEDILOL 3.125 MG TABLET PO SCH ×2 (06:25→16:52)
[2018-01-26] MEDS: ASPIRIN 81 MG TABLET EC PO SCH (06:25)
[2018-01-26 07:46] VITALS: BP 119/58
[2018-01-26] MEDS: VENLAFAXINE 75 MG CAP ER PO SCH (08:21)
[2018-01-26] MEDS: AMLODIPINE 5 MG TABLET PO SCH (08:21)
[2018-01-26] MEDS: QUETIAPINE 25MG TABLET PO SCH ×2 (08:22→20:31)
[2018-01-26] MEDS: TAMSULOSIN 0.4 MG CAP.ER.24H PO SCH (08:22)
[2018-01-26 16:50] VITALS: BP 126/63
[2018-01-26] MEDS: DIVALPROEX 125 MG CAP.SPRINK PO SCH (16:52)
[2018-01-26 19:11] VITALS: BP 129/59
[2018-01-26] MEDS: ATORVASTATIN 20 MG TABLET PO SCH (20:31)
[2018-01-26] MEDS: DONEPEZIL 10 MG TABLET PO SCH (20:31)
[2018-01-26] MEDS: TRAZODONE 50MG TABLET PO SCH (20:31)
[2018-01-27 01:28] VITALS: BP 121/58
[2018-01-27] MEDS: CARVEDILOL 3.125 MG TABLET PO SCH ×2 (05:45→18:31)
[2018-01-27] MEDS: ASPIRIN 81 MG TABLET EC PO SCH (05:45)
[2018-01-27 07:35] VITALS: BP 108/57
[2018-01-27] MEDS: AMLODIPINE 5 MG TABLET PO SCH (10:00)
[2018-01-27] MEDS: VENLAFAXINE 75 MG CAP ER PO SCH (10:01)
[2018-01-27] MEDS: TAMSULOSIN 0.4 MG CAP.ER.24H PO SCH (10:01)
[2018-01-27] MEDS: QUETIAPINE 25MG TABLET PO SCH ×2 (10:01→20:22)
[2018-01-27 18:26] VITALS: BP 128/78
[2018-01-27] MEDS: DIVALPROEX 125 MG CAP.SPRINK PO SCH (18:31)
[2018-01-27] MEDS: TRAZODONE 50MG TABLET PO SCH (20:22)
[2018-01-27] MEDS: DONEPEZIL 10 MG TABLET PO SCH (20:22)
[2018-01-27] MEDS: ATORVASTATIN 20 MG TABLET PO SCH (20:22)
[2018-01-28 01:10] VITALS: BP 127/71
[2018-01-28 05:27] LABS: CREATININE 1.44 mg/dL (0.7-1.3)
[2018-01-28] MEDS: CARVEDILOL 3.125 MG TABLET PO SCH ×2 (06:00→17:19)
[2018-01-28] MEDS: ASPIRIN 81 MG TABLET EC PO SCH ×2 (06:00→09:14)
[2018-01-28 07:52] VITALS: BP 101/64
[2018-01-28] MEDS: VENLAFAXINE 75 MG CAP ER PO SCH (09:14)
[2018-01-28] MEDS: AMLODIPINE 5 MG TABLET PO SCH (09:14)
[2018-01-28] MEDS: QUETIAPINE 25MG TABLET PO SCH ×2 (09:15→19:51)
[2018-01-28] MEDS: TAMSULOSIN 0.4 MG CAP.ER.24H PO SCH (09:15)
[2018-01-28 14:01] VITALS: BP 137/74
[2018-01-28] MEDS: DIVALPROEX 125 MG CAP.SPRINK PO SCH (17:19)
[2018-01-28 19:16] VITALS: BP 138/68
[2018-01-28] MEDS: ATORVASTATIN 20 MG TABLET PO SCH (19:51)
[2018-01-28] MEDS: DONEPEZIL 10 MG TABLET PO SCH (19:51)
[2018-01-28] MEDS: TRAZODONE 50MG TABLET PO SCH (19:51)
[2018-01-29 02:25] VITALS: BP 135/65
[2018-01-29] MEDS: CARVEDILOL 3.125 MG TABLET PO SCH ×2 (06:00→17:15)
[2018-01-29 06:07] VITALS: BP 123/69
[2018-01-29] MEDS: QUETIAPINE 25MG TABLET PO SCH ×2 (10:45→21:42)
[2018-01-29] MEDS: VENLAFAXINE 75 MG CAP ER PO SCH (10:45)
[2018-01-29] MEDS: TAMSULOSIN 0.4 MG CAP.ER.24H PO SCH (10:46)
[2018-01-29] MEDS: AMLODIPINE 5 MG TABLET PO SCH (10:46)
[2018-01-29 17:11] VITALS: BP 128/79
[2018-01-29] MEDS: DIVALPROEX 125 MG CAP.SPRINK PO SCH (17:15)
[2018-01-29 18:15] VITALS: BP 124/65
[2018-01-29] MEDS: DONEPEZIL 10 MG TABLET PO SCH (21:42)
[2018-01-29] MEDS: ATORVASTATIN 20 MG TABLET PO SCH (21:43)
[2018-01-29] MEDS: TRAZODONE 50MG TABLET PO SCH (21:43)
[2018-01-30 02:52] VITALS: BP 123/65
[2018-01-30] MEDS: ASPIRIN 81 MG TABLET EC PO SCH (05:48)
[2018-01-30] MEDS: CARVEDILOL 3.125 MG TABLET PO SCH ×2 (05:50→17:15)
[2018-01-30 08:21] VITALS: BP 128/68
[2018-01-30] MEDS: TAMSULOSIN 0.4 MG CAP.ER.24H PO SCH (09:29)
[2018-01-30] MEDS: QUETIAPINE 25MG TABLET PO SCH ×2 (09:30→21:32)
[2018-01-30] MEDS: AMLODIPINE 5 MG TABLET PO SCH (09:30)
[2018-01-30] MEDS: VENLAFAXINE 75 MG CAP ER PO SCH (09:30)
[2018-01-30 13:30] VITALS: BP 124/69
[2018-01-30] MEDS: DIVALPROEX 125 MG CAP.SPRINK PO SCH (17:15)
[2018-01-30 18:33] VITALS: BP 145/73
[2018-01-30] MEDS: ATORVASTATIN 20 MG TABLET PO SCH (21:32)
[2018-01-30] MEDS: TRAZODONE 50MG TABLET PO SCH (21:32)
[2018-01-30] MEDS: DONEPEZIL 10 MG TABLET PO SCH (21:32)
[2018-01-31 01:38] VITALS: BP 138/70
[2018-01-31 05:47] LABS: CREATININE 1.26 mg/dL (0.7-1.3)
[2018-01-31] MEDS: ASPIRIN 81 MG TABLET EC PO SCH (06:18)
[2018-01-31] MEDS: CARVEDILOL 3.125 MG TABLET PO SCH ×2 (06:19→17:03)
[2018-01-31 06:25] VITALS: BP 129/67
[2018-01-31] MEDS: QUETIAPINE 25MG TABLET PO SCH ×2 (09:06→21:25)
[2018-01-31] MEDS: AMLODIPINE 5 MG TABLET PO SCH (09:06)
[2018-01-31] MEDS: TAMSULOSIN 0.4 MG CAP.ER.24H PO SCH (09:07)
[2018-01-31] MEDS: VENLAFAXINE 75 MG CAP ER PO SCH (09:07)
[2018-01-31 13:25] VITALS: BP 126/62
[2018-01-31] MEDS: DIVALPROEX 125 MG CAP.SPRINK PO SCH (17:03)
[2018-01-31 18:43] VITALS: BP 109/51
[2018-01-31] MEDS: ATORVASTATIN 20 MG TABLET PO SCH (21:25)
[2018-01-31] MEDS: TRAZODONE 50MG TABLET PO SCH (21:25)
[2018-01-31] MEDS: DONEPEZIL 10 MG TABLET PO SCH (21:25)
[2018-02-01 02:09] VITALS: BP 121/78
[2018-02-01] MEDS: CARVEDILOL 3.125 MG TABLET PO SCH ×2 (06:00→17:58)
[2018-02-01] MEDS: ASPIRIN 81 MG TABLET EC PO SCH (06:00)
[2018-02-01 07:05] VITALS: BP 124/70
[2018-02-01] MEDS: VENLAFAXINE 75 MG CAP ER PO SCH (08:42)
[2018-02-01] MEDS: QUETIAPINE 25MG TABLET PO SCH ×2 (08:43→22:54)
[2018-02-01] MEDS: AMLODIPINE 5 MG TABLET PO SCH (08:43)
[2018-02-01] MEDS: TAMSULOSIN 0.4 MG CAP.ER.24H PO SCH (08:43)
[2018-02-01 14:00] VITALS: BP 147/82
[2018-02-01] MEDS: DIVALPROEX 125 MG CAP.SPRINK PO SCH (17:58)
[2018-02-01 19:02] VITALS: BP 129/61
[2018-02-01] MEDS: DONEPEZIL 10 MG TABLET PO SCH (22:54)
[2018-02-01] MEDS: ATORVASTATIN 20 MG TABLET PO SCH (22:54)
[2018-02-01] MEDS: TRAZODONE 50MG TABLET PO SCH (22:54)
[2018-02-02 03:58] VITALS: BP 114/68
[2018-02-02] MEDS: CARVEDILOL 3.125 MG TABLET PO SCH ×2 (05:48→17:28)
[2018-02-02] MEDS: ASPIRIN 81 MG TABLET EC PO SCH (05:48)
[2018-02-02 08:09] VITALS: BP 115/54
[2018-02-02] MEDS: TAMSULOSIN 0.4 MG CAP.ER.24H PO SCH (10:29)
[2018-02-02] MEDS: VENLAFAXINE 75 MG CAP ER PO SCH (10:29)
[2018-02-02] MEDS: QUETIAPINE 25MG TABLET PO SCH ×2 (10:29→21:35)
[2018-02-02] MEDS: AMLODIPINE 5 MG TABLET PO SCH (10:50)
[2018-02-02 15:55] VITALS: BP 101/61
[2018-02-02] MEDS: DIVALPROEX 125 MG CAP.SPRINK PO SCH (17:28)
[2018-02-02 18:28] VITALS: BP 119/56
[2018-02-02] MEDS: TRAZODONE 50MG TABLET PO SCH (21:35)
[2018-02-02] MEDS: ATORVASTATIN 20 MG TABLET PO SCH (21:35)
[2018-02-02] MEDS: DONEPEZIL 10 MG TABLET PO SCH (21:35)
[2018-02-03 03:31] VITALS: BP 109/55
[2018-02-03 05:51] LABS: CREATININE 1.27 mg/dL (0.7-1.3)
[2018-02-03] MEDS: CARVEDILOL 3.125 MG TABLET PO SCH ×2 (06:15→18:51)
[2018-02-03] MEDS: ASPIRIN 81 MG TABLET EC PO SCH (06:15)
[2018-02-03 06:53] VITALS: BP 104/62
[2018-02-03] MEDS: AMLODIPINE 5 MG TABLET PO SCH (10:19)
[2018-02-03] MEDS: QUETIAPINE 25MG TABLET PO SCH ×2 (10:19→21:02)
[2018-02-03] MEDS: TAMSULOSIN 0.4 MG CAP.ER.24H PO SCH (10:19)
[2018-02-03] MEDS: VENLAFAXINE 75 MG CAP ER PO SCH (10:19)
[2018-02-03 12:20] VITALS: BP 146/79
[2018-02-03 18:38] VITALS: BP 144/70
[2018-02-03] MEDS: DIVALPROEX 125 MG CAP.SPRINK PO SCH (18:51)
[2018-02-03] MEDS: ATORVASTATIN 20 MG TABLET PO SCH (21:01)
[2018-02-03] MEDS: DONEPEZIL 10 MG TABLET PO SCH (21:01)
[2018-02-03] MEDS: TRAZODONE 50MG TABLET PO SCH (21:02)
[2018-02-04 02:00] VITALS: BP 137/77
[2018-02-04 05:41] VITALS: BP 137/77
[2018-02-04] MEDS: ASPIRIN 81 MG TABLET EC PO SCH (05:48)
[2018-02-04] MEDS: CARVEDILOL 3.125 MG TABLET PO SCH ×2 (05:48→18:43)
[2018-02-04 07:03] VITALS: BP 133/74
[2018-02-04 14:45] VITALS: BP 145/70
[2018-02-04] MEDS: TAMSULOSIN 0.4 MG CAP.ER.24H PO SCH (16:18)
[2018-02-04] MEDS: DIVALPROEX 125 MG CAP.SPRINK PO SCH (16:19)
[2018-02-04] MEDS: QUETIAPINE 25MG TABLET PO SCH ×2 (16:19→21:15)
[2018-02-04] MEDS: VENLAFAXINE 75 MG CAP ER PO SCH (16:19)
[2018-02-04] MEDS: AMLODIPINE 5 MG TABLET PO SCH (16:19)
[2018-02-04 18:35] VITALS: BP 119/68
[2018-02-04] MEDS: TRAZODONE 50MG TABLET PO SCH (21:14)
[2018-02-04] MEDS: DONEPEZIL 10 MG TABLET PO SCH (21:14)
[2018-02-04] MEDS: ATORVASTATIN 20 MG TABLET PO SCH (21:15)
[2018-02-05 00:55] VITALS: BP 121/65
[2018-02-05] MEDS: CARVEDILOL 3.125 MG TABLET PO SCH ×2 (06:28→17:18)
[2018-02-05] MEDS: ASPIRIN 81 MG TABLET EC PO SCH (06:28)
[2018-02-05 07:20] VITALS: BP 133/77
[2018-02-05] MEDS: VENLAFAXINE 75 MG CAP ER PO SCH (10:18)
[2018-02-05] MEDS: TAMSULOSIN 0.4 MG CAP.ER.24H PO SCH (10:18)
[2018-02-05] MEDS: QUETIAPINE 25MG TABLET PO SCH ×2 (10:18→20:29)
[2018-02-05] MEDS: AMLODIPINE 5 MG TABLET PO SCH (10:18)
[2018-02-05 13:44] VITALS: BP 146/70
[2018-02-05] MEDS: DIVALPROEX 125 MG CAP.SPRINK PO SCH (17:18)
[2018-02-05 18:19] VITALS: BP 120/64
[2018-02-05] MEDS: DONEPEZIL 10 MG TABLET PO SCH (20:29)
[2018-02-05] MEDS: ATORVASTATIN 20 MG TABLET PO SCH (20:29)
[2018-02-05] MEDS: TRAZODONE 50MG TABLET PO SCH (20:29)
[2018-02-06 00:21] VITALS: BP 118/61
[2018-02-06] MEDS: CARVEDILOL 3.125 MG TABLET PO SCH ×2 (05:55→17:14)
[2018-02-06] MEDS: ASPIRIN 81 MG TABLET EC PO SCH (05:55)
[2018-02-06] MEDS: QUETIAPINE 25MG TABLET PO SCH ×2 (08:30→21:42)
[2018-02-06] MEDS: TAMSULOSIN 0.4 MG CAP.ER.24H PO SCH (08:30)
[2018-02-06] MEDS: AMLODIPINE 5 MG TABLET PO SCH (08:30)
[2018-02-06] MEDS: VENLAFAXINE 75 MG CAP ER PO SCH (08:30)
[2018-02-06 08:33] VITALS: BP 149/76
[2018-02-06 13:59] VITALS: BP 104/58
[2018-02-06] MEDS: DIVALPROEX 125 MG CAP.SPRINK PO SCH (17:14)
[2018-02-06 19:07] VITALS: BP 126/64
[2018-02-06] MEDS: ATORVASTATIN 20 MG TABLET PO SCH (21:43)
[2018-02-06] MEDS: DONEPEZIL 10 MG TABLET PO SCH (21:43)
[2018-02-06] MEDS: TRAZODONE 50MG TABLET PO SCH (21:43)
[2018-02-07 01:39] VITALS: BP 137/77
[2018-02-07] MEDS: ASPIRIN 81 MG TABLET EC PO SCH (05:27)
[2018-02-07] MEDS: CARVEDILOL 3.125 MG TABLET PO SCH ×2 (05:28→17:30)
[2018-02-07 05:29] VITALS: BP 126/69
[2018-02-07 07:10] VITALS: BP 136/68
[2018-02-07] MEDS: TAMSULOSIN 0.4 MG CAP.ER.24H PO SCH (09:23)
[2018-02-07] MEDS: VENLAFAXINE 75 MG CAP ER PO SCH (09:24)
[2018-02-07] MEDS: QUETIAPINE 25MG TABLET PO SCH ×2 (09:24→20:20)
[2018-02-07] MEDS: AMLODIPINE 5 MG TABLET PO SCH (09:24)
[2018-02-07 14:12] VITALS: BP 122/60
[2018-02-07 17:28] VITALS: BP 136/73
[2018-02-07] MEDS: DIVALPROEX 125 MG CAP.SPRINK PO SCH (17:30)
[2018-02-07 18:15] VITALS: BP 130/69
[2018-02-07] MEDS: TRAZODONE 50MG TABLET PO SCH (20:19)
[2018-02-07] MEDS: ATORVASTATIN 20 MG TABLET PO SCH (20:19)
[2018-02-07] MEDS: DONEPEZIL 10 MG TABLET PO SCH (20:19)
[2018-02-08 02:56] VITALS: BP 137/60
[2018-02-08] MEDS: CARVEDILOL 3.125 MG TABLET PO SCH ×2 (05:55→17:34)
[2018-02-08] MEDS: ASPIRIN 81 MG TABLET EC PO SCH (05:55)
[2018-02-08 07:20] VITALS: BP 127/57
[2018-02-08] MEDS: QUETIAPINE 25MG TABLET PO SCH ×2 (07:48→21:18)
[2018-02-08] MEDS: TAMSULOSIN 0.4 MG CAP.ER.24H PO SCH (07:48)
[2018-02-08] MEDS: AMLODIPINE 5 MG TABLET PO SCH (07:48)
[2018-02-08] MEDS: VENLAFAXINE 75 MG CAP ER PO SCH (07:48)
[2018-02-08 13:37] VITALS: BP 108/57
[2018-02-08] MEDS: DIVALPROEX 125 MG CAP.SPRINK PO SCH (17:34)
[2018-02-08 18:50] VITALS: BP 130/72
[2018-02-08] MEDS: DONEPEZIL 10 MG TABLET PO SCH (21:18)
[2018-02-08] MEDS: TRAZODONE 50MG TABLET PO SCH (21:18)
[2018-02-08] MEDS: ATORVASTATIN 20 MG TABLET PO SCH (21:18)
[2018-02-09 03:35] VITALS: BP 128/69
[2018-02-09 04:50] LABS: CREATININE 1.32 mg/dL (0.7-1.3)
[2018-02-09] MEDS: CARVEDILOL 3.125 MG TABLET PO SCH ×2 (05:41→17:22)
[2018-02-09] MEDS: ASPIRIN 81 MG TABLET EC PO SCH (05:41)
[2018-02-09] MEDS: AMLODIPINE 5 MG TABLET PO SCH (07:52)
[2018-02-09] MEDS: QUETIAPINE 25MG TABLET PO SCH ×2 (07:52→21:42)
[2018-02-09] MEDS: TAMSULOSIN 0.4 MG CAP.ER.24H PO SCH (07:53)
[2018-02-09] MEDS: VENLAFAXINE 75 MG CAP ER PO SCH (07:53)
[2018-02-09 07:58] VITALS: BP 108/62
[2018-02-09 13:52] VITALS: BP 128/70
[2018-02-09] MEDS: DIVALPROEX 125 MG CAP.SPRINK PO SCH (17:22)
[2018-02-09 19:01] VITALS: BP 126/68
[2018-02-09] MEDS: ATORVASTATIN 20 MG TABLET PO SCH (21:42)
[2018-02-09] MEDS: DONEPEZIL 10 MG TABLET PO SCH (21:42)
[2018-02-09] MEDS: TRAZODONE 50MG TABLET PO SCH (21:42)
[2018-02-10 02:21] VITALS: BP 121/79
[2018-02-10] MEDS: CARVEDILOL 3.125 MG TABLET PO SCH ×2 (06:03→17:04)
[2018-02-10] MEDS: ASPIRIN 81 MG TABLET EC PO SCH (06:03)
[2018-02-10 06:59] VITALS: BP 127/71
[2018-02-10] MEDS: VENLAFAXINE 75 MG CAP ER PO SCH (07:39)
[2018-02-10] MEDS: QUETIAPINE 25MG TABLET PO SCH ×2 (07:39→21:50)
[2018-02-10] MEDS: DOCUSATE 100 MG CAPSULE PO PRN (07:39)
[2018-02-10] MEDS: AMLODIPINE 5 MG TABLET PO SCH (07:40)
[2018-02-10] MEDS: TAMSULOSIN 0.4 MG CAP.ER.24H PO SCH (07:40)
[2018-02-10 15:13] VITALS: BP 149/67
[2018-02-10] MEDS: DIVALPROEX 125 MG CAP.SPRINK PO SCH (17:05)
[2018-02-10 18:58] VITALS: BP 133/63
[2018-02-10] MEDS: ATORVASTATIN 20 MG TABLET PO SCH (21:50)
[2018-02-10] MEDS: DONEPEZIL 10 MG TABLET PO SCH (21:50)
[2018-02-10] MEDS: TRAZODONE 50MG TABLET PO SCH (21:50)
[2018-02-11 02:22] VITALS: BP 120/65
[2018-02-11] MEDS: CARVEDILOL 3.125 MG TABLET PO SCH ×2 (05:48→17:33)
[2018-02-11] MEDS: ASPIRIN 81 MG TABLET EC PO SCH (05:48)
[2018-02-11 06:39] VITALS: BP 120/57
[2018-02-11 07:30] VITALS: BP 192/79
[2018-02-11] MEDS: VENLAFAXINE 75 MG CAP ER PO SCH (10:36)
[2018-02-11] MEDS: DOCUSATE 100 MG CAPSULE PO SCH (10:36)
[2018-02-11] MEDS: TAMSULOSIN 0.4 MG CAP.ER.24H PO SCH (10:36)
[2018-02-11] MEDS: AMLODIPINE 5 MG TABLET PO SCH (10:36)
[2018-02-11] MEDS: QUETIAPINE 25MG TABLET PO SCH ×2 (10:36→21:00)
[2018-02-11 12:58] VITALS: BP 147/70
[2018-02-11] MEDS: DIVALPROEX 125 MG CAP.SPRINK PO SCH (17:33)
[2018-02-11 18:23] VITALS: BP 143/68
[2018-02-11] MEDS ORDERED: QUETIAPINE 100MG TABLET ONE (20:59)
[2018-02-11] MEDS: TRAZODONE 50MG TABLET PO SCH (21:02)
[2018-02-11] MEDS: ATORVASTATIN 20 MG TABLET PO SCH (21:02)
[2018-02-11] MEDS: DONEPEZIL 10 MG TABLET PO SCH (21:02)
[2018-02-12 03:40] VITALS: BP 122/71
[2018-02-12] MEDS: ASPIRIN 81 MG TABLET EC PO SCH (05:54)
[2018-02-12] MEDS: CARVEDILOL 3.125 MG TABLET PO SCH (05:54)
[2018-02-12] MEDS ORDERED: AMLO5TAB2 PO (06:47)
[2018-02-12] MEDS ORDERED: CARV3.1212 PO (06:50)
[2018-02-12] MEDS ORDERED: ASPI-621 PO (06:50)
[2018-02-12] MEDS ORDERED: DONE10TA56 PO (06:50)
[2018-02-12] MEDS ORDERED: QUET25TA PO (06:50)
[2018-02-12] MEDS ORDERED: DIVA125C PO (06:50)
[2018-02-12] MEDS ORDERED: DOCU-131 PO (06:50)
[2018-02-12] MEDS ORDERED: ACET325T14 PO (06:57)
[2018-02-12 07:37] VITALS: BP 119/69
[2018-02-12] MEDS ORDERED: QUETIAPINE 100MG TABLET ONE (07:47)
[2018-02-12] MEDS: AMLODIPINE 5 MG TABLET PO SCH (07:50)
[2018-02-12] MEDS: TAMSULOSIN 0.4 MG CAP.ER.24H PO SCH (07:50)
[2018-02-12] MEDS: VENLAFAXINE 75 MG CAP ER PO SCH (07:50)
[2018-02-12] MEDS: DOCUSATE 100 MG CAPSULE PO SCH (07:50)
[2018-02-12] MEDS: QUETIAPINE 25MG TABLET PO SCH (07:51)
[2018-02-12 13:21] VITALS: BP 98/61
== END 2018-02-12 16:00 | disposition hospice, home (50) | DRG 56 ==
LOC: ED 16:26 → 3NE 18:40
PROVIDERS: ADMIT Internal Medicine; ATTEND Internal Medicine
DX: G20 Parkinson's disease (principal); G93.40 Encephalopathy, unspecified; F02.81 Dementia in other diseases classified elsewhere, unspecified severity, with behavioral disturbance; D53.9 Nutritional anemia, unspecified; Z78.1 Physical restraint status; E11.9 Type 2 diabetes mellitus without complications; D50.9 Iron deficiency anemia, unspecified; D75.89 Other specified diseases of blood and blood-forming organs; E86.0 Dehydration; E78.5 Hyperlipidemia, unspecified; G25.2 Other specified forms of tremor; I10 Essential (primary) hypertension; N28.9 Disorder of kidney and ureter, unspecified; N40.1 Benign prostatic hyperplasia with lower urinary tract symptoms; R32 Unspecified urinary incontinence; Z79.4 Long term (current) use of insulin; Z86.73 Personal history of transient ischemic attack (TIA), and cerebral infarction without residual deficits; Z91.81 History of falling; Y93.89 Activity, other specified; Y92.89 Other specified places as the place of occurrence of the external cause; Y99.8 Other external cause status
CPT/HCPCS: 36415; 70450; 71045; 80048; 80053; 80307; 81003; 82040; 82140; 82565; 82607; 82746; 83036; 83605; 83735; 84443; 85025; 85610; 86480; 86592; 93005; 99285; J1650; J3486; 92523-GN; G0515-GN; J7030

== ENCOUNTER 2018-11-28 07:50 | Emergency (ER) | payer MEDICARE, OTHER ==
[~2018-11-28] VITALS: Ht 172.7 cm; Wt 69.9 kg
[~2018-11-28 07:50] MED LIST: ACET325T14 PO; AMLO-150 PO; ASPI81TA45 PO; ATOR20TA37 PO; CARV3.1212 PO; DIVA125C2 PO; DOCU-131 PO; DONE10TA56 PO; HALO1TAB PO; LOSA50TA2 PO; METF500T PO; QUET25TA7 PO; RISP0.5T24 PO; TAMS-11 PO; TRAZ50TA66 PO; VENL75CA6 PO
[2018-11-28] MEDS ORDERED: CARB1TAB46 PO (08:14)
--- NOTE | 2018-11-28 08:14 | NUR ---
Pt BIB [facility] from [facility] for new slurred speech and increased shaking. Pt was last seen normal at 8:30 pm. Reports baseline confusion. Hx: Dementia, parkinsons, CVA, DM, & HTN. FS 105. 12 lead negative. Pt is alert to person and place. Pt follows commands. Pt is connected to the monitor. Call light within reach. Both side rails up.
--- NOTE | 2018-11-28 08:18 | NUR ---
X Ray at bedside.
[2018-11-28 08:30] LABS: BASOPHILS # (AUTO) 0.04 x10^3/uL (0-0.1); BASOPHILS % (AUTO) 1 % (0-1); EOSINOPHILS # (AUTO) 0.26 x10^3/uL (0-0.4); EOSINOPHILS % (AUTO) 3 % (1-7); LYMPHOCYTES % (AUTO) 26 % (22-44); MD NO; MEAN CORPUSCULAR HEMOGLOBIN 32.4 pg (27.5-34.5); MEAN CORPUSCULAR HGB CONC 32.8 g/dL (33.2-36.2); MEAN CORPUSCULAR VOLUME 98.8 fL (81-97); MONOCYTES # (AUTO) 0.54 x10^3/uL (0.2-0.8); MONOCYTES % (AUTO) 6 % (2-9); NEUTROPHILS % (AUTO) 65 % (42-75); PLATELET COUNT 200 x10^3/uL (130-400); RED BLOOD COUNT 3.64 x10^6/uL (4.38-5.82); RED CELL DISTRIBUTION WIDTH 13.9 % (9.4-14.8)
[2018-11-28 08:41] LABS: ALANINE AMINOTRANSFERASE 44 U/L (12-78); ALBUMIN 3.4 g/dL (3.4-5.0); ANION GAP 4 mmol/L (5-15); CALCIUM 8.5 mg/dL (8.5-10.1); CHLORIDE 107 mmol/L (98-107); CREATININE 1.14 mg/dL (0.7-1.3)
[2018-11-28 08:45] LABS: ALKALINE PHOSPHATASE 159 U/L (45-117); BILIRUBIN,TOTAL 0.3 mg/dL (0.2-1.0); TOTAL PROTEIN 7.4 g/dL (6.4-8.2); TROPONIN I < 0.015 ng/mL (0.000-0.045)
[2018-11-28 08:55] LABS: MICROSCOPIC INDICATED
[2018-11-28 09:05] LABS: CULTURE INDICATED? NO
--- NOTE | 2018-11-28 09:56 | NUR ---
PT IS RESTING IN BED RESPIRATIONS EQUAL AND NON LABORED. NAD. PT IS CONNECTED TO THE MONITOR. CALL LIGHT WITHIN REACH.
[2018-11-28 10:55] VITALS: BP 122/46
--- NOTE | 2018-11-28 10:55 | NUR ---
PT IS RESTING IN BED RESPIRATIONS EQUAL AND NON LABORED. NAD. PT IS CONNECTED TO THE MONITOR. CALL LIGHT WITHIN REACH. MD AT BEDSIDE.
--- NOTE | 2018-11-28 11:28 | NUR ---
DRESSED PT. PT IS RESTING IN BED, RESPIRATIONS EQUAL AND NON LABORED. NAD. SPOKE WITH [facility], GAVE REPORT AND LET THEM KNOW THAT HE WILL BE COMING BACK.
--- NOTE | 2018-11-28 11:53 | NUR ---
DISCUSSED DISCHARGE WITH [facility]. DISCUSSED DISCHARGE INSTRUCTIONS WITH PT TAKEN OUT OF ED IN WHEELCHAIR BY [facility] BACK TO [facility].
== END 2018-11-28 11:58 | disposition home or self-care (01) ==
LOC: ED 10:36
DX: R41.82 Altered mental status, unspecified (principal); E11.9 Type 2 diabetes mellitus without complications; F03.90 Unspecified dementia, unspecified severity, without behavioral disturbance, psychotic disturbance, mood disturbance, and anxiety; Z86.73 Personal history of transient ischemic attack (TIA), and cerebral infarction without residual deficits
CPT/HCPCS: 36415; 70450; 71045; 80053; 81001; 84484; 85025; 93005; 99284